=== PATIENT | male | born 1950 | race Caucasian/White ===

== ENCOUNTER 2017-12-22 13:48 | Inpatient (IN) | payer MEDICARE ==
[2017-12-22] MEDS ORDERED: ASPIRIN 81 MG PO STA (14:10)
[2017-12-22] MEDS ORDERED: NITROGLYCERIN OINT 1 INCH/GM PACKET TOPICAL STA (14:10)
--- NOTE | 2017-12-22 14:15 | ED ---
General Adult HPI - General Chief complaint: Chest Pain Stated complaint: Chest Pain Time Seen by Provider: 12/22/17 14:06 Source: patient, EMS, RN notes reviewed Mode of arrival: EMS Limitations: no limitations - History of Present Illness Initial comments: Patient is a pleasant 67-year-old male presenting to the emergency Department with complaints of chest discomfort. Onset was as he was finishing mowing the lawn. Discomfort is somewhat improved with nitroglycerin. Discomfort is currently 4/10. No associated dyspnea or nausea. Patient was sweaty however feels he may been sweaty just from cutting the grass. No history of similar symptoms previously. There was some radiation towards the left shoulder and right jaw. Patient has a difficult time describing the type of discomfort he experienced. - Related Data Home Medications Medication Instructions Recorded Confirmed Cinnamon Bark [Cinnamon] 500 mg PO DAILY 12/22/17 12/22/17 Fenugreek 1 tab PO DAILY 12/22/17 12/22/17 Garlic 1 tab PO DAILY 12/22/17 12/22/17 Glucosam/Oswaldo-Msm1/C/Alex/Bosw 1 tab PO DAILY 12/22/17 12/22/17 [Glucosamine-Chondroitin Tablet] Magnesium(Unknown Dose) 1 tab PO DAILY 12/22/17 12/22/17 Prostate Strong 1 tab PO DAILY 12/22/17 12/22/17 Allergies Allergy/AdvReac Type Severity Reaction Status Date / Time No Known Allergies Allergy Verified 12/22/17 14:24 Review of Systems ROS Statement: Those systems with pertinent positive or pertinent negative responses have been documented in the HPI. ROS Other: All systems not noted in ROS Statement are negative. Constitutional: Denies: fever Eyes: Denies: eye pain ENT: Denies: ear pain Respiratory: Denies: cough, dyspnea Cardiovascular: Reports: chest pain Endocrine: Denies: fatigue Gastrointestinal: Denies: nausea Genitourinary: Denies: dysuria Musculoskeletal: Denies: back pain Skin: Denies: rash Neurological: Denies: weakness Past Medical History Past Medical History: No Reported History History of Any Multi-Drug Resistant Organisms: None Reported Past Surgical History: Orthopedic Surgery Past Psychological History: No Psychological Hx Reported Smoking Status: Former smoker Past Alcohol Use History: Occasional Past Drug Use History: None Reported General Exam Limitations: no limitations General appearance: alert, in no apparent distress Head exam: Present: atraumatic Eye exam: Present: normal appearance, PERRL ENT exam: Present: normal oropharynx Neck exam: Present: normal inspection Respiratory exam: Present: normal lung sounds bilaterally. Absent: chest wall tenderness Cardiovascular Exam: Present: regular rate, normal rhythm, normal heart sounds Expanded Peripheral pulses: 2+: Radial (R), Radial (L), Posterior Tibialis (R), Posterior Tibialis (L) GI/Abdominal exam: Present: soft. Absent: tenderness Extremities exam: Present: normal inspection. Absent: pedal edema, calf tenderness Neurological exam: Present: alert Psychiatric exam: Present: normal affect, normal mood Skin exam: Present: normal color Course Vital Signs 12/22/17 12/22/17 13:49 15:25 Temperature 97.8 F Pulse Rate 84 76 Respiratory 18 16 Rate Blood Pressure 169/97 169/89 O2 Sat by Pulse 96 99 Oximetry EKG Findings - EKG Comments: EKG Findings:: Normal sinus rhythm 79. LA 148. QRS 102. QT 388. QTC 444. Normal axis. Normal QRS. No acute ST change. Medical Decision Making - Medical Decision Making Patient reevaluated and resting comfortably in bed. No significant discomfort at this time. Patient and family are updated on results and plan. Concern exists with elevated troponin. Patient will be started on heparin. Case was discussed with Dr. sutton, who will admit for Dr. Salinas. Cardiology will be placed on consult. Patient is advised to inform nursing if his symptoms worsen. - Lab Data Result diagrams: 12/22/17 13:54 12/22/17 13:54 Lab Results 12/22/17 12/22/17 12/22/17 Range/Units 13:54 13:54 13:54 WBC 9.1 (3.8-10.6) k/uL RBC 5.49 (4.30-5.90) m/uL Hgb 17.0 (13.0-17.5) gm/dL Hct 50.0 (39.0-53.0) % MCV 91.1 (80.0-100.0) fL MCH 31.0 (25.0-35.0) pg MCHC 34.0 (31.0-37.0) g/dL RDW 13.9 (11.5-15.5) % Plt Count 162 (150-450) k/uL Neutrophils % 81 % Lymphocytes % 13 % Monocytes % 5 % Eosinophils % 0 % Basophils % 1 % Neutrophils # 7.3 (1.3-7.7) k/uL Lymphocytes # 1.1 (1.0-4.8) k/uL Monocytes # 0.4 (0-1.0) k/uL Eosinophils # 0.0 (0-0.7) k/uL Basophils # 0.1 (0-0.2) k/uL PT (9.0-12.0) sec INR (<1.2) APTT (22.0-30.0) sec D-Dimer (<0.60) mg/L FEU Sodium 140 (137-145) mmol/L Potassium 5.1 (3.5-5.1) mmol/L Chloride 103 (98-107) mmol/L Carbon Dioxide 22 (22-30) mmol/L Anion Gap 15 mmol/L BUN 13 (9-20) mg/dL Creatinine 0.84 (0.66-1.25) mg/dL Est GFR (CKD-EPI)AfAm >90 (>60 ml/min/1.73 sqM) Est GFR (CKD-EPI)NonAf >90 (>60 ml/min/1.73 sqM) Glucose 274 H (74-99) mg/dL Calcium 9.6 (8.4-10.2) mg/dL Magnesium 1.9 (1.6-2.3) mg/dL Total Bilirubin 2.1 H (0.2-1.3) mg/dL AST 28 (17-59) U/L ALT 47 (21-72) U/L Alkaline Phosphatase 123 (38-126) U/L Total Creatine Kinase 161 (55-170) U/L CK-MB (CK-2) 2.5 H* (0.0-2.4) ng/mL CK-MB (CK-2) Rel Index 1.6 Troponin I 0.082 H* (0.000-0.034) ng/mL Total Protein 6.7 (6.3-8.2) g/dL Albumin 4.0 (3.5-5.0) g/dL 12/22/17 Range/Units 13:54 WBC (3.8-10.6) k/uL RBC (4.30-5.90) m/uL Hgb (13.0-17.5) gm/dL Hct (39.0-53.0) % MCV (80.0-100.0) fL MCH (25.0-35.0) pg MCHC (31.0-37.0) g/dL RDW (11.5-15.5) % Plt Count (150-450) k/uL Neutrophils % % Lymphocytes % % Monocytes % % Eosinophils % % Basophils % % Neutrophils # (1.3-7.7) k/uL Lymphocytes # (1.0-4.8) k/uL Monocytes # (0-1.0) k/uL Eosinophils # (0-0.7) k/uL Basophils # (0-0.2) k/uL PT 10.7 (9.0-12.0) sec INR 1.1 (<1.2) APTT 22.9 (22.0-30.0) sec D-Dimer 0.31 (<0.60) mg/L FEU Sodium (137-145) mmol/L Potassium (3.5-5.1) mmol/L Chloride (98-107) mmol/L Carbon Dioxide (22-30) mmol/L Anion Gap mmol/L BUN (9-20) mg/dL Creatinine (0.66-1.25) mg/dL Est GFR (CKD-EPI)AfAm (>60 ml/min/1.73 sqM) Est GFR (CKD-EPI)NonAf (>60 ml/min/1.73 sqM) Glucose (74-99) mg/dL Calcium (8.4-10.2) mg/dL Magnesium (1.6-2.3) mg/dL Total Bilirubin (0.2-1.3) mg/dL AST (17-59) U/L ALT (21-72) U/L Alkaline Phosphatase (38-126) U/L Total Creatine Kinase (55-170) U/L CK-MB (CK-2) (0.0-2.4) ng/mL CK-MB (CK-2) Rel Index Troponin I (0.000-0.034) ng/mL Total Protein (6.3-8.2) g/dL Albumin (3.5-5.0) g/dL - Radiology Data Radiology results: image reviewed (Chest x-ray shows no acute process.) Critical Care Time Critical Care Time: Yes Total Critical Care Time: 33 Disposition Clinical Impression: Acute coronary syndrome Disposition: ADMITTED IP TO THIS [facility] Condition: Serious Is patient prescribed a controlled substance at d/c from ED?: No Referrals: Georgia Salinas MD [Primary Care Provider] - 1-2 days Decision Time: 15:34
[2017-12-22 14:28] LABS: Basophils # (A) 0.1 k/uL (0-0.2); Basophils % (A) 1 %; Eosinophils % (A) 0 %; Lymphocytes # (A) 1.1 k/uL (1.0-4.8); Lymphocytes % (A) 13 %; MCV 91.1 fL (80.0-100.0); Monocytes # (A) 0.4 k/uL (0-1.0); Monocytes % (A) 5 %; Neutrophils # (A) 7.3 k/uL (1.3-7.7); Neutrophils % (A) 81 %; Platelet Count 162 k/uL (150-450); RBC 5.49 m/uL (4.30-5.90); RDW 13.9 % (11.5-15.5); WBC 9.1 k/uL (3.8-10.6)
[2017-12-22 14:35] LABS: ALT 47 U/L (21-72); AST 28 U/L (17-59); Alkaline Phosphatase 123 U/L (38-126); Anion Gap 15 mmol/L; Blood Urea Nitrogen 13 mg/dL (9-20); Calcium 9.6 mg/dL (8.4-10.2); Carbon Dioxide 22 mmol/L (22-30); Chloride 103 mmol/L (98-107); Glucose 274 mg/dL (74-99); Magnesium 1.9 mg/dL (1.6-2.3); Potassium 5.1 mmol/L (3.5-5.1); Sodium 140 mmol/L (137-145); Total Bilirubin 2.1 mg/dL (0.2-1.3); Total Protein 6.7 g/dL (6.3-8.2)
[2017-12-22 14:40] LABS: D-Dimer 0.31 mg/L FEU (<0.60); INR 1.1 (<1.2)
[2017-12-22 14:41] LABS: Partial Thromboplastin Time 22.9 sec (22.0-30.0); Prothrombin Time 10.7 sec (9.0-12.0)
[2017-12-22 15:06] LABS: Creatine Kinase MB 2.5 ng/mL (0.0-2.4); Troponin I 0.082 ng/mL (0.000-0.034)
--- NOTE | 2017-12-22 15:25 | XR ---
EXAMINATION TYPE: XR chest 2V DATE OF EXAM: 12/22/2017 COMPARISON: Prior chest CT 01/10/2012 HISTORY: Chest pain TECHNIQUE: Frontal and lateral views of the chest are obtained. FINDINGS: There is no focal air space opacity, pleural effusion, or pneumothorax seen. The cardiac silhouette size is within normal limits. The osseous structures are intact. Postop changes are note d to the cervical spine. Patient is post median sternotomy. There are prominent lung volumes possibly indicative of COPD. IMPRESSION: No acute cardiopulmonary process.
[2017-12-22] MEDS ORDERED: HEPARIN SODIUM,PORCINE 5,000 UNIT/ML 1 ML VIAL IV PRN (15:34)
[2017-12-22] MEDS ORDERED: HEPARIN SODIUM,PORCINE 5,000 UNIT/ML 1 ML VIAL IV ONE (15:34)
[2017-12-22] MEDS ORDERED: NITROGLYCERIN SL TABS 0.4 MG TAB SUBLINGUAL PRN (15:34)
[2017-12-22] MEDS: HEPARIN SODIUM,PORCINE/D5W PMX 25,000 UNIT in DEXTROSE/WATER 1 500ML.BAG IV SCH (15:56)
[2017-12-22 17:13] LABS: Troponin I 0.277 ng/mL (0.000-0.034)
[2017-12-22] MEDS: METOPROLOL TARTRATE 25 MG TAB PO SCH ×2 (18:05→22:52)
[2017-12-22] MEDS: NITROGLYCERIN OINT 1 INCH/GM PACKET TOPICAL SCH ×2 (18:05→23:50)
[2017-12-22] MEDS ORDERED: ALPRAZolam 0.25 MG TAB PO PRN (19:54)
[2017-12-22] MEDS ORDERED: TEMAZEPAM 15 MG CAP PO PRN (19:54)
[2017-12-22] MEDS: Acetaminophen-Codeine 300-30mg TAB PO PRN (20:52)
--- NOTE | 2017-12-22 21:12 | HP ---
HISTORY AND PHYSICAL CHIEF COMPLAINT: Chest pain. 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 Salinas in the outpatient setting, apparently was working outside. The patient was in the yard and after mowing the grass, the patient came inside. The patient was feeling chest pressure in the anterior part of the chest which was 5 out of 10 in intensity. EMS was called and the patient had some sweating also, some pain. The pain was radiating to the left shoulder and right jaw area also. The EMS gave some nitro which relieved the pain, but caused some headache to the patient. The patient came to [facility] and was admitted for further evaluation. The EKG showed ST-T changes in the inferior leads and blood sugar was 274. Troponins 0.082 and 0.277. Patient admitted for further evaluation and treatment. There is no history of any fever, rigors. No history of headache, loss of consciousness, seizures at this time. PAST MEDICAL HISTORY: History of CVA, TIA, history of third-degree piña, cardiac catheterization, DJD. MEDICATIONS: Prior to admission: 1.Magnesium. 2. Glucosamine. 3. Garlic. 4. Fenugreek. 5. Cinnamon bark. ALLERGIES: None. FAMILY HISTORY: History of tumor in the family. No history of heart disease or strokes in family. SOCIAL HISTORY: Previous history of smoking. No history of current smoking. No alcohol intake. REVIEW OF SYSTEMS: ENT: No diminished vision. No diminished hearing. Cardiovascular as mentioned earlier. Respiratory: As mentioned earlier. GI: No nausea and no vomiting or diarrhea. : No dysuria or hematuria. Nervous system: No numbness, weakness. Allergy/Immunology: No asthma or hayfever. MUSCULOSKELETAL: As mentioned earlier. HEMATOLOGY/ONCOLOGY: No history of anemia. Endocrine: No history of diabetes or hypothyroidism. Constitutional: As mentioned earlier. Dermatology: Negative. RHEUMATOLOGY: Negative. PSYCHIATRY: As mentioned earlier. PHYSICAL EXAM: GENERAL: Patient is alert, oriented x3. VITAL SIGNS: Pulse is 80, blood pressure 141/79, respiration 18, temperature 98 degrees, pulse ox 98% on room air. HEENT: Conjunctivae normal. NECK: No jugular venous distention. CARDIOVASCULAR: S1, S2 muffled. No S3, no S4. RESPIRATORY: Breath sounds diminished in the bases. No rhonchi. No crackles. ABDOMEN: Soft, nontender. No mass palpable. LEGS: No edema and no swelling. NERVOUS SYSTEM: Higher functions as mentioned earlier. Moves all four limbs. No focal deficits. LYMPHATICS: No lymph nodes palpable in the neck, axillae or groin. SKIN: No rashes, ulcers, or bleeding. JOINTS: No active deforming arthropathy. LABS: WBC 9.9. Hemoglobin 7. PTT 65.7. Glucose 274. Total bilirubin is 2.1. Creatine kinase 219 and CK-MB is 2.5 and 8 and troponin 0.08 and 0.277. EKG noted. Chest x-ray reviewed shows no acute cardiopulmonary process. ASSESSMENT: 1. Chest pain possible acute non ST segment elevation myocardial infarction. 2. Troponin 0.277. 3. Possibly new onset diabetes mellitus type 2. 4. Obesity with body mass index 38. 5. History of cerebrovascular accident/transient ischemic attack. 6. History of third-degree piña. 7. History of renal nephrolithiasis. 8. Hypertension. 9. History of degenerative joint disease. 10.History neck fusion. 11.History of cornea transplantation. 12.Remote history of nicotine dependence. RECOMMENDATIONS AND DISCUSSION: This 67-year-old gentleman who presented with multiple complex medical issues, we will monitor the patient closely. Continue the current medications, continue symptomatic treatment. Continue with IV heparin. Continue aspirin. Beta blockers. Monitor closely. Cardiology consultation. Acute coronary syndrome protocol. Symptomatic treatment. I would also recommend Tylenol #3 for the headache, nitro paste at this time. Otherwise monitor Accu-Cheks a.c. and hemoglobin A1c. The overall prognosis guarded because of multiple complex medical issues. DVT prophylaxis. Further recommendations to follow. Proton pump inhibitors. A copy of dictation forwarded to Dr. Salinas who is the primary physician. MMODL / IJN: [id number] / MTDVani
[2017-12-22 22:25] LABS: Glucose,Whole Blood 253 mg/dL (75-99)
[2017-12-22] MEDS: INSULIN ASPART 100 UNIT/ML 1 ML 10 ML VIAL SQ SCH (22:51)
[2017-12-23 02:21] LABS: Magnesium 1.8 mg/dL (1.6-2.3); Potassium 3.7 mmol/L (3.5-5.1)
[2017-12-23] MEDS ORDERED: Potassium Replacement Protocol 1 EACH MISC MISCELLANE PRN ×2 (04:19→04:20)
[2017-12-23] MEDS ORDERED: POTASSIUM CHLORIDE ER 20 MEQ TAB.ER PO SCH ×2 (05:00→06:00)
[2017-12-23] MEDS ORDERED: MAGNESIUM SULFATE-D5W PMX 1 GM in DEXTROSE/WATER 1 100ML.BAG IVPB ONE (05:25)
[2017-12-23] MEDS: NITROGLYCERIN OINT 1 INCH/GM PACKET TOPICAL SCH (06:12)
[2017-12-23 06:26] LABS: Glucose,Whole Blood 218 mg/dL (75-99)
[2017-12-23 06:26] LABS: Basophils % (A) 1 %; Eosinophils # (A) 0.1 k/uL (0-0.7); Eosinophils % (A) 2 %; HCT 46.6 % (39.0-53.0); HGB 16.2 gm/dL (13.0-17.5); Lymphocytes # (A) 1.7 k/uL (1.0-4.8); Lymphocytes % (A) 32 %; MCH 31.6 pg (25.0-35.0); MCHC 34.9 g/dL (31.0-37.0); MCV 90.6 fL (80.0-100.0); Monocytes # (A) 0.3 k/uL (0-1.0); Monocytes % (A) 6 %; Neutrophils % (A) 57 %; Platelet Count 172 k/uL (150-450); RBC 5.14 m/uL (4.30-5.90); RDW 13.5 % (11.5-15.5); WBC 5.3 k/uL (3.8-10.6)
[2017-12-23] MEDS: INSULIN ASPART 100 UNIT/ML 1 ML 10 ML VIAL SQ SCH ×4 (06:30→21:01)
[2017-12-23] MEDS: PANTOPRAZOLE 40 MG TABLET PO SCH (06:31)
[2017-12-23 07:44] LABS: Creatine Kinase MB 29.5 ng/mL (0.0-2.4)
[2017-12-23 08:03] LABS: Anion Gap 11 mmol/L; Blood Urea Nitrogen 12 mg/dL (9-20); Calcium 8.3 mg/dL (8.4-10.2); Carbon Dioxide 23 mmol/L (22-30); Chloride 103 mmol/L (98-107); Cholesterol 165 mg/dL (<200); Glucose 229 mg/dL (74-99); HDL Cholesterol 44 mg/dL (40-60); LDL Cholesterol,Calculated 96 mg/dL (0-99); Potassium 4.2 mmol/L (3.5-5.1); Sodium 137 mmol/L (137-145); Triglycerides 123 mg/dL (<150)
[2017-12-23] MEDS: HEPARIN SODIUM,PORCINE/D5W PMX 25,000 UNIT in DEXTROSE/WATER 1 500ML.BAG IV SCH (08:18)
--- NOTE | 2017-12-23 08:55 | P.CRDCN ---
History of Present Illness Consult date: 12/23/17 Requesting physician: Archie E Sheet Consult reason: non-Q-wave KS Chief complaint: Chest pain History of present illness: This is a 67-year-old gentleman with no prior documented hypertension , nondiabetic, no hyperlipidemia, nonsmoker, history of TIA in the past, this was approximately 15 years ago, at that time he also underwent a cardiac catheterization which he states was normal. Patient has not followed with a physician regularly for 6 years or so. He has overall been in excellent health and is quite physically active. Yesterday the patient was doing some yard work , came into the house, was having symptoms of chest pressure and tightness across his chest, it did radiate at times up into his jaw and into his arm. He denies any associated shortness of breath, he was quite diaphoretic but states he was working out in the heat. Symptoms persisted and for this reason his called EMS and had him brought to the hospital for further evaluation. EKG on arrival here showed normal sinus rhythm with inferior ST-T wave changes, subsequent EKG showed normal sinus rhythm with mild inferior ST elevation. EKG this morning continues to show ST-T wave changes in the inferior leads. Throughout the night last night patient was noted to have runs of nonsustained ventricular tachycardia. CBC is normal. D-dimer negative. Sodium 137, potassium 3.7, chloride 103, CO2 23, BUN 12, creatinine 0.6. Blood glucose on arrival to 74. Magnesium level I.8. Initial troponin 0.082, 0.277 and this morning's troponin is 11.0. Blood pressure on arrival 168/90, heart rate in the 80s, temperature 97.8 ,96% on 2 L of oxygen. At the time of my examination this morning, patient is currently chest pain-free. He is on IV heparin, aspirin, metoprolol, Nitropaste, he was also given magnesium and potassium supplementation last evening. Past Medical History Past Medical History: CVA/TIA Additional Past Medical History / Comment(s): hx 3rd degree piña on abd as a child d/t a homemade mustard plaster that was applied, tia, past kidney stone, rt leg broken-casted History of Any Multi-Drug Resistant Organisms: None Reported Past Surgical History: Heart Catheterization, Orthopedic Surgery Additional Past Surgical History / Comment(s): neck fusion, lt cornea transplant , rt ing hernia, lt carpal tunnel, x3 rt knee scopes, lt knee x`1 to clean out debri Past Anesthesia/Blood Transfusion Reactions: Motion Sickness Smoking Status: Former smoker - Past Family History Mother History Unknown: Yes Father Additional Family Medical History / Comment(s): tumor Medications and Allergies Home Medications Medication Instructions Recorded Confirmed Type Cinnamon Bark [Cinnamon] 500 mg PO DAILY 12/22/17 12/22/17 History Fenugreek 1 tab PO DAILY 12/22/17 12/22/17 History Garlic 1 tab PO DAILY 12/22/17 12/22/17 History Glucosam/Oswaldo-Msm1/C/Alex/Bosw 1 tab PO DAILY 12/22/17 12/22/17 History [Glucosamine-Chondroitin Tablet] Magnesium(Unknown Dose) 1 tab PO DAILY 12/22/17 12/22/17 History Prostate Strong 1 tab PO DAILY 12/22/17 12/22/17 History Allergies Allergy/AdvReac Type Severity Reaction Status Date / Time No Known Allergies Allergy Verified 12/22/17 14:24 Physical Exam Vitals: Vital Signs Temp Pulse Pulse Resp BP BP Pulse Ox 12/23/17 08:20 97.3 F L 60 18 132/67 12/23/17 03:52 68 17 12/23/17 03:50 97.3 F L 68 17 140/80 12/23/17 00:00 97.5 F L 70 18 128/74 12/22/17 20:00 97.2 F L 73 18 155/85 12/22/17 18:55 98.0 F 80 18 141/79 93 L 12/22/17 15:59 80 16 168/93 96 12/22/17 15:25 76 16 169/89 99 12/22/17 13:49 97.8 F 84 18 169/97 96 Intake and Output 12/22/17 12/23/17 12/23/17 22:59 06:59 14:59 Intake Total 647.333 424.784 282.816 Balance 647.333 424.784 282.816 Intake: Intake, IV Titration 167.333 224.784 42.816 Amount Heparin Sodium,Porcine/ 167.333 224.784 42.816 D5w Pmx 25,000 unit In Dextrose/Water 1 500ml. bag @ 8.819 UNITS/KG/HR 20 mls/hr IV .Q24H [facility] Rx #:[id number] Oral 480 200 240 Other: Voiding Method Toilet Toilet Urinal Urinal # Voids 1 Weight 110.7 kg PHYSICAL EXAMINATION: GENERAL: HEENT: Head is atraumatic, normocephalic. Pupils equal, round. Sclera anicteric. Conjunctiva are clear. Mucous membranes of the mouth are moist. Neck is supple. There is no elevated jugular venous pressure.] bruit is heard. HEART EXAMINATION: Heart S1, S2 normal. No murmur or gallop heard. CHEST EXAMINATION: Lungs are clear to auscultation and precussion. No chest wall tenderness is noted on palpation or with deep breathing. ABDOMEN: Soft, nontender. Bowel sounds are heard. No organomegaly noted. EXTREMITIES: 2+ peripheral pulses with no evidence of peripheral edema and no calf tenderness noted. NEUROLOGIC patient is awake, alert and oriented -3. . Results 12/23/17 05:28 12/23/17 06:57 Cardiac Enzymes 12/22/17 12/22/17 12/22/17 Range/Units 13:54 13:54 16:06 AST 28 (17-59) U/L CK-MB (CK-2) 2.5 H* 8.0 H* (0.0-2.4) ng/mL Troponin I 0.082 H* 0.277 H* (0.000-0.034) ng/mL 12/23/17 Range/Units 06:57 AST (17-59) U/L CK-MB (CK-2) 29.5 H* (0.0-2.4) ng/mL Troponin I 11.000 H* (0.000-0.034) ng/mL Coagulation 12/22/17 12/22/17 12/22/17 Range/Units 13:54 16:06 21:35 PT 10.7 (9.0-12.0) sec APTT 22.9 65.7 H 30.6 H (22.0-30.0) sec 12/23/17 Range/Units 05:28 PT (9.0-12.0) sec APTT 48.7 H (22.0-30.0) sec Lipids 12/23/17 Range/Units 06:57 Triglycerides 123 (<150) mg/dL Cholesterol 165 (<200) mg/dL HDL Cholesterol 44 (40-60) mg/dL CBC 12/22/17 12/23/17 Range/Units 13:54 05:28 WBC 9.1 5.3 (3.8-10.6) k/uL RBC 5.49 5.14 (4.30-5.90) m/uL Hgb 17.0 16.2 (13.0-17.5) gm/dL Hct 50.0 46.6 (39.0-53.0) % Plt Count 162 172 (150-450) k/uL Comprehensive Metabolic Panel 12/22/17 12/23/17 12/23/17 Range/Units 13:54 01:54 06:57 Sodium 140 137 (137-145) mmol/L Potassium 5.1 3.7 4.2 (3.5-5.1) mmol/L Chloride 103 103 (98-107) mmol/L Carbon Dioxide 22 23 (22-30) mmol/L BUN 13 12 (9-20) mg/dL Creatinine 0.84 0.64 L (0.66-1.25) mg/dL Glucose 274 H 229 H (74-99) mg/dL Calcium 9.6 8.3 L (8.4-10.2) mg/dL AST 28 (17-59) U/L ALT 47 (21-72) U/L Alkaline Phosphatase 123 (38-126) U/L Total Protein 6.7 (6.3-8.2) g/dL Albumin 4.0 (3.5-5.0) g/dL Current Medications Generic Name Dose Route Start Last Admin Trade Name Freq PRN Reason Stop Dose Admin Acetaminophen/Codeine Phosphate 1 each 12/22/17 19:49 12/22/17 20:52 Tylenol #3 PO 1 each Q6HR PRN Administration Pain Alprazolam 0.25 mg 12/22/17 19:54 Xanax PO TID PRN Anxiety Aspirin 325 mg 12/23/17 09:00 Aspirin PO DAILY [facility] Heparin Sodium (Porcine) 0 unit 12/22/17 15:34 12/22/17 22:16 Heparin IV 4,000 unit Q6HR PRN Administration Low PTT Protocol Heparin Sodium/Dextrose 25,000 500 mls @ 20 mls/hr 05/25/18 15:45 12/23/17 08 :18 unit/ IV Solution IV 11.8 units/kg/hr .Q24H [facility] 26.76 mls/hr Protocol Administration 8.819 UNITS/KG/HR Insulin Aspart 0 unit 12/22/17 21:00 12/23/17 06:30 Novolog SQ Not Given ACHS [facility] Protocol Metoprolol Tartrate 25 mg 12/22/17 15:34 12/22/17 22:52 Lopressor PO Not Given BID [facility] Miscellaneous Information 1 each 12/23/17 04:19 Potassium Per Protocol MISCELLANE DAILY PRN Per Protocol Protocol Miscellaneous Information 1 each 12/23/17 04:20 Potassium Per Protocol MISCELLANE DAILY PRN Per Protocol Protocol Nitroglycerin 1 inch 12/22/17 18:00 12/23/17 06:12 Nitro-Bid Oint TOPICAL Not Given Q6HR [facility] Nitroglycerin 0.4 mg 12/22/17 15:34 Nitrostat SUBLINGUAL Q5M PRN Chest Pain Pantoprazole Sodium 40 mg 12/23/17 07:30 12/23/17 06:31 Protonix PO Not Given AC-BRKFST [facility] Sodium Chloride 10 ml 12/22/17 21:00 12/22/17 20:54 Saline Flush IV 10 ml BID [facility] Administration Temazepam 15 mg 12/22/17 19:54 Restoril PO HS PRN Insomnia Intake and Output 12/22/17 12/23/17 12/23/17 22:59 06:59 14:59 Intake Total 647.333 424.784 282.816 Balance 647.333 424.784 282.816 Intake: Intake, IV Titration 167.333 224.784 42.816 Amount Heparin Sodium,Porcine/ 167.333 224.784 42.816 D5w Pmx 25,000 unit In Dextrose/Water 1 500ml. bag @ 8.819 UNITS/KG/HR 20 mls/hr IV .Q24H [facility] Rx #:[id number] Oral 480 200 240 Other: Voiding Method Toilet Toilet Urinal Urinal # Voids 1 Weight 110.7 kg 12/23/17 05:28 12/23/17 06:57 EKG Interpretations (text) EKG shows normal sinus rhythm with ST-T wave changes in the inferior leads. Assessment and Plan Plan: Assessment and plan #1 non-ST elevation myocardial infarction #2 elevated blood sugars on arrival, patient was not a known diabetic #3 hypertension, not on blood pressure medication at home. #4 nonsustained ventricular tachycardia Plan We will obtain a stat echocardiogram with Doppler study. Give the patient 80 mg of Lipitor now. Patient has been advised that he may need to undergo cardiac catheterization, the risks and the benefits were explained to the patient in detail, he is willing to proceed. Further recommendations will be based on these findings and patient's clinical course. DNP note has been reviewed, I agree with a documented findings and plan of care. Patient was seen and examined.
[2017-12-23] MEDS ORDERED: ASPIRIN 325 MG TAB PO SCH (09:00)
[2017-12-23] MEDS: METOPROLOL TARTRATE 25 MG TAB PO SCH ×2 (09:19→20:01)
--- NOTE | 2017-12-23 09:19 | ECHOF ---
Referral Reason:acs MEASUREMENTS -------- HEIGHT: 172.7 cm WEIGHT: 113.4 kg BP: 168/93 RVIDd: 3.3 cm (< 3.3) IVSd: 1.2 cm (0.6 - 1.1) LVIDd: 4.0 cm (3.9 - 5.3) LVPWd: 1.2 cm (0.6 - 1.1) IVSs: 1.7 cm LVIDs: 3.0 cm LVPWs: 1.7 cm LAESV Index (A-L): 29.76 ml/m Ao Diam: 3.8 cm (2.0 - 3.7) AV Cusp: 2.2 cm (1.5 - 2.6) LA Diam: 3.3 cm (2.7 - 3.8) EPSS: 0.6 cm MV E Darrel: 0.38 m/s MV DecT: 349 ms MV A Darrel: 0.65 m/s MV E/A Ratio: 0.59 RAP: 5.00 mmHg RVSP: 9.51 mmHg MV EF SLOPE: 31.19 mm/s (70 - 150) MV EXCURSION: 1.50 cm (> 18.000) FINDINGS -------- Sinus rhythm. This was a technically adequate study. The left ventricular size is normal. There is mild concentric left ventricular hypertrophy. Overa ll left ventricular systolic function is low-normal with, an EF between 50 - 55 %. The right ventricle is mildly enlarged. LA is midly dilated 29-33ml/m2. The right atrium was not well visualized. Aortic valve is trileaflet and is mildly thickened. There is no evidence of aortic regurgitation. There is no evidence of aortic stenosis. The mitral valve leaflets are mildly thickened. There is trace to mild mitral regurgitation. Trace tricuspid regurgitation present. Right ventricular systolic pressure is normal at < 35 mmHg. There is no evidence of pulmonary hypertension. Trace/mild (physiologic) pulmonic regurgitation. The aortic root size is normal. Normal inferior vena cava with normal inspiratory collapse consistent with estimated right atrial pre ssure of 5 mmHg. There is no pericardial effusion. CONCLUSIONS -------- 1. Sinus rhythm. 2. This was a technically adequate study. 3. The left ventricular size is normal. 4. There is mild concentric left ventricular hypertrophy. 5. Overall left ventricular systolic function is low-normal with, an EF between 50 - 55 %. 6. The right ventricle is mildly enlarged. 7. LA is midly dilated 29-33ml/m2. 8. The right atrium was not well visualized. 9. Aortic valve is trileaflet and is mildly thickened. 10. The mitral valve leaflets are mildly thickened. 11. There is trace to mild mitral regurgitation. 12. Trace tricuspid regurgitation present. 13. Right ventricular systolic pressure is normal at < 35 mmHg. 14. There is no evidence of pulmonary hypertension. 15. Trace/mild (physiologic) pulmonic regurgitation. 16. The aortic root size is normal. 17. There is no pericardial effusion. ROPER OPERATOR: Vinh Gruber RDCS
[2017-12-23] MEDS ORDERED: MIDAZOLAM 2 MG/2 ML VIAL ONE (11:19)
[2017-12-23] MEDS ORDERED: IV FLUID CONTINUATION 550 ML IV ONE (11:20)
[2017-12-23] MEDS ORDERED: LIDOCAINE 2% INJ 20 MG/ML (20 ML MDV) ONE (11:24)
[2017-12-23] MEDS ORDERED: diphenhydrAMINE 50 MG/ML 1 ML VIAL ONE (11:28)
[2017-12-23] MEDS ORDERED: MORPHINE SULFATE 4 MG/ML SYRINGE ONE (12:20)
[2017-12-23] MEDS ORDERED: MIDAZOLAM 2 MG/2 ML VIAL IVP ONE (12:22)
[2017-12-23] MEDS ORDERED: diphenhydrAMINE 50 MG/ML 1 ML VIAL IVP ONE (12:23)
[2017-12-23] MEDS: MORPHINE SULFATE 4 MG/ML SYRINGE IVP ONE ×2 (12:23→13:14)
[2017-12-23] MEDS: LIDOCAINE 2% INJ 20 MG/ML SQ ONE ×2 (12:27→13:14)
[2017-12-23] MEDS ORDERED: BIVALIRUDIN BOLUS 250 MG/50 ML IV ONE (12:46)
[2017-12-23] MEDS ORDERED: BIVALIRUDIN 250 MG in SODIUM CHLORIDE 0.9% 50 ML IV ONE (12:47)
[2017-12-23] MEDS ORDERED: NITROGLYCERIN 1000MCG/10ML SYRINGE INTRACORON ONE (13:06)
[2017-12-23] MEDS ORDERED: IOPAMIDOL-370 100ML BTL INJ ONE ×2 (13:08→13:15)
[2017-12-23] MEDS ORDERED: CLOPIDOGREL 75 MG TAB ONE (13:20)
[2017-12-23] MEDS ORDERED: CLOPIDOGREL 75 MG TAB PO ONE (13:23)
[2017-12-23] MEDS ORDERED: ZOLPIDEM 5 MG TAB PO PRN (13:33)
[2017-12-23] MEDS ORDERED: ATROPINE SULFATE 0.1 MG/ML 10ML SYRINGE IV PRN (13:33)
[2017-12-23] MEDS ORDERED: RX INFO: IV CONTRAST WAS GIVEN 1 EACH MISC MISCELLANE PRN (13:33)
[2017-12-23] MEDS ORDERED: NITROGLYCERIN SL TABS 0.4 MG TAB SUBLINGUAL PRN (13:33)
[2017-12-23] MEDS ORDERED: MAG HYDROX/AL HYDROX/SIMETH 30 ML CUP PO PRN (13:33)
[2017-12-23 13:36] LABS: Hemoglobin A1C 11.4 % (4.0-6.0)
--- NOTE | 2017-12-23 14:13 | CC ---
CARDIAC CATHETERIZATION REPORT DATE OF SERVICE: 12/23/2017. PROCEDURE: 1. Left heart catheterization and coronary angiography. 2. PTCA and stenting of proximal/mid LAD with a drug-eluting stent. PERFORMED BY: Dr. Andres Iniguez. SEDATION: Moderate conscious sedation time was 61 minutes. The patient was given morphine , Versed and Benadryl and his oxygen saturation, hemodynamics and EKG were monitored closely. CLINICAL INFORMATION: Mr. Ramez Rdz is a 67-year-old gentleman with a remote history of TIA, from which he recovered fully and this was more than 10-12 years ago. He does not take any specific prescription medications and he came into the hospital with chest pain syndrome suggestive of unstable angina and this occurred while he was cutting grass. He also developed some diaphoresis. His initial troponin was mildly elevated. Subsequently he was totally pain-free. EKG did not reveal any clear-cut changes. However, his subsequent troponin was elevated. Echocardiogram revealed minimal inferobasal hypokinesia. Ejection fraction was normal. He has had a cardiac cath apparently more than 10 years ago and was told it was normal. The details are unavailable. In view of his non-ST elevation KS, he was advised coronary angiography. I saw the patient this morning, explained to him the rationale, risks, benefits, options and also spoke to his by phone. The clinical picture was strongly suggestive of acute ischemic syndrome with a non-ST elevation KS. PROCEDURE NOTE: Under local anesthesia and strict aseptic precautions, a 6-Argentine introducer was placed in the right femoral artery. I used a standard Pedro catheters to perform coronary angiography and noted that there was a 99% stenosis involving the proximal/mid LAD immediately after the diagonal and small septal branch. He also had a subtotal occlusion of a PDA branch of circumflex which could also be a culprit lesion. RCA was a non dominant disease-free vessel. Circumflex was dominant. He was advised intervention that was performed expeditiously and I performed intervention of the LAD, which was a tighter lesion and recommended that before he leaves the hospital to have staged intervention of the PDA branch of circumflex. PTCA PROCEDURE DETAILS: I initially tried an XB LAD catheter then switched over to a C curve 4.00 catheter to cannulate the left coronary artery. I used a run-through wire to cross the lesion in the LAD. Predilatation was performed using a 15 mm long Euphora balloon. I then deployed a 23 mm long 3.0 caliber Xience stent at 11-12 atmospheres. Patient did not have chest pain but had significant anterior ST changes and ST segment elevation. He had excellent angiographic result without complication. He received 600 mg of Plavix. He also received Angiomax bolus and infusion as per protocol. The sheath was taken out and a Perclose device used to secure hemostasis. He was sent to the room in a stable condition. CARDIAC CATHETERIZATION FINDINGS: The left ventricle end-diastolic pressure was about 15 mmHg. I used a pigtail catheter to check pressures but did not perform LV gram. CORONARY ANGIOGRAPHY FINDINGS: RIGHT CORONARY ARTERY : Technically this is a nondominant vessel, has no significant disease and distally bifurcates into 2 small branches. There is an acute marginal which is quite tortuous and supplies right ventricle. There is no significant disease in the nondominant RCA. At the junction of the proximal and middle 1/3 there is minor 30% narrowing noted. LEFT MAIN CORONARY ARTERY: This is a short patent disease-free vessel that immediately bifurcates into LAD and circumflex. There is no significant disease in the short left main coronary artery. LEFT ANTERIOR DESCENDING CORONARY ARTERY: This is a good caliber LAD that gives off a large diagonal branch proximally. A small septal branch there is an eccentric 99% stenosis after which the caliber improves and vessel runs all the way to the apex. The distal 1/4 of the LAD also has some diffuse disease in it and it curves over the apex to supply the inferoapical portion of left ventricle. The LAD therefore at the junction of proximal and middle one third has a 99% stenosis calcified and quite severe. The first diagonal is free of significant disease. The distal LAD has significant disease. LEFT POSTERIOR CIRCUMFLEX CORONARY ARTERY: This is a very dominant vessel, gives off a small obtuse marginal proximally, then a moderate-sized obtuse marginal soon after that and then there is a large obtuse marginal that bifurcates into 2 branches. All the obtuse marginals have minor irregularities with of about 30%. The large obtuse marginal bifurcates into 2 branches. The inferior branch has about a 40% narrowing. Then circumflex then continues distally and it bifurcates into 2 branches, 1 is a smaller PLV branch and a larger PDA branch. The larger PDA has an eccentric 90% stenosis and there is some tortuosity after the stenotic segment and it appears to be a fair caliber vessel. This also could be a culprit lesion. The circumflex therefore is dominant, has several obtuse marginal, but the PDA branches which was of good caliber and distribution has a 99 to 95% stenosis with some haziness. LEFT VENTRICULOGRAM: This was not performed. FINAL IMPRESSION: This patient has normal filling pressures and 99% proximal/mid LAD lesion and distal diffuse LAD lesion. There is a 90% PDA branch of Dominant circumflex lesion. Non Dom RCA with no significant disease RECOMMENDATION: I recommended intervention of the LAD and proceeded to perform this in the same setting. PCI RESULTS: Excellent angiographic result was achieved with a 23 mm long drug-eluting Xience stent. Results were discussed with the patient and also I spoke to the by phone. MEDARDO / RICK: [id number] / MTDD
--- NOTE | 2017-12-23 14:19 | LTR ---
DATE OF SERVICE: 12/23/[address] Salinas: Thank you for the opportunity to participate in the care of Mr. Rdz. I am pleased to report to you that he had an excellent angiographic result. I dilated the LAD with a drug-eluting stent and I expect to do the PDA branch of circumflex prior to his discharge. The circumflex is somewhat of a distal lesion and technically more challenging and I will do this either on Monday or Monday. Thank you for your referral. Please call for questions. With kindest regards, Sincerely yours, [email or web address] / IJN: [id number] /
[2017-12-23 14:31] VITALS: BMI 37.0
[2017-12-23] MEDS: SODIUM CHLORIDE 0.9% 1,000 ML IV SCH (14:55)
[2017-12-23 16:46] LABS: Glucose,Whole Blood 168 mg/dL (75-99)
[2017-12-23] MEDS: ATORVASTATIN 80 MG TAB PO SCH (20:01)
--- NOTE | 2017-12-23 20:19 | PN ---
PROGRESS NOTE DATE OF SERVICE: 12/23/2017 This 67-year-old gentleman who was admitted with chest pain with possible acute non ST elevation myocardial infarction, also underwent a cardiac catheterization and LAD stenting. The patient also had a 90% PDA branch of dominant circumflex lesion also. Patient closely monitored. No chest pain. No palpitations. No fever. EXAM: GENERAL: Alert and oriented x3. VITAL SIGNS: The pulse is 64. Blood pressure 140/48. Respiration 18. Temperature 97.8, pulse ox 94% on 2 L. HEENT: Conjunctivae normal. NECK: No jugular venous distention. CARDIOVASCULAR: S1, S2 muffled. RESPIRATORY: Breath sounds diminished in the bases. No rhonchi and no crackles. ABDOMEN: Soft, nontender. No mass palpable. LEGS: No edema and no swelling. NERVOUS SYSTEM: Higher functions as mentioned earlier. Moves all four limbs. No focal deficits LYMPHATICS: No lymph nodes palpable in the neck, axillae or groin. SKIN: No ulcer, rash or bleeding. LABS: CBC within normal limits and creatinine 0.64 and troponin 11. ASSESSMENT: 1. Acute non ST-segment elevation myocardial infarction status post cardiac catheterization and LAD stenting with drug-eluting stent. 2. For stenting of the PDA branches, circumflex prior to discharge. 3. Troponin up to 11. 4. Possible new onset diabetes type 2. 5. Obesity with body mass index of 33.8. 6. History of cerebrovascular accident, transient ischemic attack. 7. History of third degree piña. 8. History of renal nephrolithiasis. 9. Hypertension. 10.History of degenerative joint disease. 11.History of neck fusion. 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 13.Remote history of nicotine dependence. RECOMMENDATIONS AND DISCUSSION: Recommend to continue current medications, management and symptomatic treatment. Otherwise closely monitor. Hemoglobin A1c is 11.4. I would recommend consistent carb diet and Accu-Cheks a.c. and q.h.s. Dietary consultation and I would also recommend p.o. medication including metformin initially. Blood sugar seems to be responding to the NovoLog scale at this time. We will continue to monitor. Further recommendations to follow. MMODL / IJN: [id number] /
[2017-12-23 21:00] LABS: Glucose,Whole Blood 188 mg/dL (75-99)
[2017-12-24] MEDS: SODIUM CHLORIDE 0.9% 1,000 ML IV SCH ×2 (03:24→17:28)
[2017-12-24 06:14] LABS: Glucose,Whole Blood 177 mg/dL (75-99)
[2017-12-24 06:35] LABS: Basophils % (A) 0 %; Eosinophils # (A) 0.1 k/uL (0-0.7); Eosinophils % (A) 1 %; HCT 47.2 % (39.0-53.0); HGB 16.1 gm/dL (13.0-17.5); Lymphocytes # (A) 1.1 k/uL (1.0-4.8); Lymphocytes % (A) 14 %; MCH 31.4 pg (25.0-35.0); MCHC 34.1 g/dL (31.0-37.0); MCV 92.2 fL (80.0-100.0); Mean Platelet Volume 7.1; Monocytes # (A) 0.5 k/uL (0-1.0); Monocytes % (A) 6 %; Neutrophils # (A) 6.1 k/uL (1.3-7.7); Neutrophils % (A) 77 %; Platelet Count 165 k/uL (150-450); RBC 5.12 m/uL (4.30-5.90); RDW 13.7 % (11.5-15.5); WBC 7.9 k/uL (3.8-10.6)
[2017-12-24] MEDS: PANTOPRAZOLE 40 MG TABLET PO SCH (06:41)
[2017-12-24] MEDS: INSULIN ASPART 100 UNIT/ML 1 ML 10 ML VIAL SQ SCH ×4 (06:41→21:52)
[2017-12-24 06:43] LABS: Anion Gap 10 mmol/L; Blood Urea Nitrogen 10 mg/dL (9-20); Calcium 8.5 mg/dL (8.4-10.2); Carbon Dioxide 23 mmol/L (22-30); Chloride 104 mmol/L (98-107); Glucose 181 mg/dL (74-99); Potassium 4.2 mmol/L (3.5-5.1); Sodium 137 mmol/L (137-145)
[2017-12-24] MEDS: LISINOPRIL 5 MG TAB PO SCH (09:22)
[2017-12-24] MEDS: CLOPIDOGREL 75 MG TAB PO SCH (09:22)
[2017-12-24] MEDS: ASPIRIN 81 MG PO SCH (09:22)
[2017-12-24] MEDS: METOPROLOL TARTRATE 25 MG TAB PO SCH ×2 (09:22→20:17)
[2017-12-24] MEDS ORDERED: ALPRAZolam 0.5 MG TAB PO PRN (10:48)
[2017-12-24] MEDS ORDERED: ATORVASTATIN 80 MG TAB PO STA (10:48)
[2017-12-24] MEDS ORDERED: ASPIRIN 325 MG TAB PO STA (10:48)
[2017-12-24] MEDS ORDERED: SODIUM CHLORIDE 0.9% 1,000 ML in EMPTY BAG 1 BAG IV ONE (10:48)
[2017-12-24] MEDS ORDERED: NITROGLYCERIN SL TABS 0.4 MG TAB SUBLINGUAL PRN ×2 (10:48→15:32)
[2017-12-24] MEDS ORDERED: ALPRAZolam 0.25 MG TAB PO PRN (10:48)
[2017-12-24 12:02] LABS: Glucose,Whole Blood 219 mg/dL (75-99)
[2017-12-24] MEDS: ATORVASTATIN 80 MG TAB PO SCH ×2 (12:02→20:16)
--- NOTE | 2017-12-24 13:50 | PN ---
PROGRESS NOTE Mrs. Rdz underwent stenting of a proximal/mid LAD yesterday from right femoral approach. His right groin is clean and dry. Vital signs are stable. Labs are good. EKG is good. He also has a significant lesion in the PDA branch of circumflex which I am recommending that we will perform today, probably from the right radial approach. I explained to the patient the rationale, risks, benefits, options. This may have actually been the culprit vessel. Procedure will be performed later on today. Patient understands risks, benefits and options and wishes to proceed. Vital signs are stable. S1-S2 heard normally. Lungs are clear. Abdomen and lower extremity exam unchanged. Right groin is clean and dry with small area of ecchymosis. Pulses good. MMODL / IJN: [id number] /
[2017-12-24] MEDS ORDERED: VERAPAMIL 2.5 MG/ML 2 ML AMP ONE (14:20)
[2017-12-24] MEDS ORDERED: MIDAZOLAM 2 MG/2 ML VIAL ONE (14:20)
[2017-12-24] MEDS ORDERED: diphenhydrAMINE 50 MG/ML 1 ML VIAL ONE (14:21)
[2017-12-24] MEDS ORDERED: LIDOCAINE 2% INJ 20 MG/ML (20 ML MDV) ONE (14:21)
[2017-12-24] MEDS ORDERED: MIDAZOLAM 2 MG/2 ML VIAL IVP ONE (14:37)
[2017-12-24] MEDS ORDERED: diphenhydrAMINE 50 MG/ML 1 ML VIAL IVP ONE (14:37)
[2017-12-24] MEDS ORDERED: IV FLUID CONTINUATION 700 ML IV ONE (14:38)
[2017-12-24] MEDS ORDERED: LIDOCAINE 2% INJ 20 MG/ML SQ ONE (14:39)
[2017-12-24] MEDS ORDERED: VERAPAMIL SYRINGE (5 MG/10 ML) INTRAARTER ONE (14:40)
[2017-12-24] MEDS ORDERED: NITROGLYCERIN 1000MCG/10ML SYRINGE INTRACORON ONE (14:48)
[2017-12-24] MEDS ORDERED: BIVALIRUDIN BOLUS 250 MG/50 ML IV ONE (14:50)
[2017-12-24] MEDS ORDERED: BIVALIRUDIN 250 MG in SODIUM CHLORIDE 0.9% 50 ML IV ONE (14:51)
[2017-12-24] MEDS ORDERED: IOPAMIDOL-370 100ML BTL INJ ONE ×2 (14:58→15:15)
[2017-12-24] MEDS ORDERED: IOPAMIDOL-370 50ML BTL INJ ONE (15:02)
[2017-12-24] MEDS ORDERED: niCARdipine 25 MG/10 ML VIAL ONE (15:11)
[2017-12-24] MEDS ORDERED: niCARdipine Syringe (1,000 mcg/10 mL) INTRACORON ONE (15:12)
[2017-12-24] MEDS ORDERED: CLOPIDOGREL 75 MG TAB PO ONE (15:17)
[2017-12-24] MEDS ORDERED: CLOPIDOGREL 75 MG TAB ONE (15:19)
[2017-12-24] MEDS ORDERED: MAG HYDROX/AL HYDROX/SIMETH 30 ML CUP PO PRN (15:32)
[2017-12-24] MEDS ORDERED: ZOLPIDEM 5 MG TAB PO PRN (15:32)
[2017-12-24] MEDS ORDERED: ATROPINE SULFATE 0.1 MG/ML 10ML SYRINGE IV PRN (15:32)
[2017-12-24] MEDS ORDERED: RX INFO: IV CONTRAST WAS GIVEN 1 EACH MISC MISCELLANE PRN (15:32)
[2017-12-24 16:38] LABS: Glucose,Whole Blood 161 mg/dL (75-99)
--- NOTE | 2017-12-24 17:44 | PN ---
PROGRESS NOTE DATE OF SERVICE: 12/24/2017. INTERVAL HISTORY: This 67-year-old gentleman who was admitted with acute myocardial infarction had LAD stenting. The patient is awaiting stenting of the circumflex today probably Dr. Phuong Iniguez is following the patient closely. No chest pain. No palpitations. No fever. EXAM: Alert and oriented times three. Pulse 67. Blood pressure 150/85, respiration 18, temperature 97.2, pulse ox 94% room air. HEENT: Conjunctivae normal. NECK is no jugular venous distention. CARDIOVASCULAR: S1, S2 muffled. RESPIRATORY: Breath sounds diminished in the bases. No rhonchi and no crackles. ABDOMEN is soft, nontender. No mass palpable. LEGS: No edema. No swelling. CENTRAL NERVOUS SYSTEM: No focal deficits. LABORATORY DATA: CBC within normal limits. Glucose 177. ASSESSMENT: 1. Acute non ST-segment elevation myocardial infarction status post cardiac catheterization LAD stenting with a drug-eluting stent. 2. For stenting of the PDA and circumflex prior to discharge. 3. Troponin of 11. 4. New onset diabetes mellitus type 2. 5. Obesity with body mass index of 33.8. 6. History of cerebrovascular accident, transient ischemic attack. 7. History of third-degree piña. 8. History of renal nephrolithiasis. 9. Hypertension. 10.History of degenerative joint disease. 11.History of neck fusion. 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 13.Remote history of nicotine dependence. RECOMMENDATIONS AND DISCUSSION: Recommend to continue current medications. Continue with monitoring and symptomatic treatment. Continue with antiplatelets. Continue beta blockers. Closely follow with Cardiology. Repeat cardiac cath today. Further recommendations to follow. MMODL / IJN: [id number] / MTDD
[2017-12-24] MEDS: Acetaminophen-Codeine 300-30mg TAB PO PRN (20:16)
[2017-12-24 21:07] LABS: Glucose,Whole Blood 186 mg/dL (75-99)
--- NOTE | 2017-12-24 21:35 | CC ---
CARDIAC CATHETERIZATION REPORT DATE OF SERVICE: 12/24/2017 PROCEDURE PERFORMED: PTCA and stenting off PDA branch of dominant circumflex coronary artery with a drug- eluting stent. PERFORMED BY: Dr. Andres Iniguez. ANESTHESIA: Moderate conscious sedation time was 39 minutes. CLINICAL INFORMATION: Mr. Rdz is a 67-year-old gentleman admitted to the hospital with a non-ST elevation MS and underwent stenting of a very tight proximal/mid LAD yesterday with a drug- eluting stent and was brought in for a staged intervention today. Risks, benefits, options and rationale were carefully explained to the patient and . PROCEDURE NOTE: Under local anesthesia and strict aseptic precautions, a 6-American introducer was placed in the right radial artery. I used a Q4 left side guide catheter and cannulated the left coronary artery. I took injections to check patency of LAD and LAD was widely patent without any compromise in flow. I then transferred my attention to the circumflex system. Using the same guide catheter with a run-through wire, I crossed the lesion in the PDA branch which was a very large and very distal lesion and a very large distribution vessel. Without predilatation I advanced a 12 mm long 2.75 caliber Xience stent and deployed this in the distal portion of the lesion. There was still another area of narrowing proximally just before the stented segment and this was addressed with another 8 mm 2.75 caliber Xience stent. With this I was able to deploy and telescope into the previously placed stent. Excellent angiographic result was achieved with a remarkably good angiographic appearance and flow. There were no complications. Results were discussed with the patient and also with his by phone. This appears to be a very large vessel with significant amount of distribution of the myocardium and it runs all the way to the apex and is the PDA branch that also gives off some septal branches. The patient received Angiomax bolus and infusion as per protocol. He also received 150 mg of Plavix additionally. Excellent angiographic result without complication was achieved and the sheath was taken out and TR band applied as per protocol and he was sent to the room in a stable condition. This patient had stenting of proximal/mid LAD. This vessel was widely patent. I performed a stenting of his PDA branch of circumflex with 2 drug-eluting stents. Excellent result was achieved. I expect the patient to be discharged in the next 24 hours. MMODL / IJN: [id number] /
--- NOTE | 2017-12-24 21:35 | LTR ---
DATE OF SERVICE: 12/24/[address] Salinas: Thank you for the opportunity to participate in the care of Mr. Ramez Rdz. As you may have received my earlier communication, I performed stenting of his LAD yesterday with a good result and I brought him back today to check the patency of LAD. The LAD was widely patent with good flow. I then performed stenting of the PDA branch of circumflex with a good result. I expect he will be discharged tomorrow if he remains stable. Thank you for your referral and please do call for questions. With kindest regards, Sincerely, MEDARDO / CLARIN: [id number] /
[2017-12-25 05:25] VITALS: RESP 18
[2017-12-25 06:02] LABS: Glucose,Whole Blood 134 mg/dL (75-99)
[2017-12-25] MEDS: INSULIN ASPART 100 UNIT/ML 1 ML 10 ML VIAL SQ SCH ×2 (06:07→13:29)
[2017-12-25] MEDS: PANTOPRAZOLE 40 MG TABLET PO SCH (06:36)
[2017-12-25 06:38] LABS: Basophils % (A) 1 %; Eosinophils # (A) 0.1 k/uL (0-0.7); Eosinophils % (A) 2 %; HCT 45.7 % (39.0-53.0); HGB 15.4 gm/dL (13.0-17.5); Lymphocytes # (A) 1.3 k/uL (1.0-4.8); Lymphocytes % (A) 24 %; MCH 31.4 pg (25.0-35.0); MCHC 33.7 g/dL (31.0-37.0); MCV 93.1 fL (80.0-100.0); Mean Platelet Volume 7.4; Monocytes # (A) 0.4 k/uL (0-1.0); Monocytes % (A) 7 %; Neutrophils # (A) 3.5 k/uL (1.3-7.7); Neutrophils % (A) 65 %; Platelet Count 140 k/uL (150-450); RBC 4.91 m/uL (4.30-5.90); RDW 14.5 % (11.5-15.5); WBC 5.4 k/uL (3.8-10.6)
[2017-12-25 06:51] LABS: Anion Gap 12 mmol/L; Blood Urea Nitrogen 11 mg/dL (9-20); Calcium 8.5 mg/dL (8.4-10.2); Carbon Dioxide 20 mmol/L (22-30); Chloride 107 mmol/L (98-107); Glucose 149 mg/dL (74-99); Potassium 4.2 mmol/L (3.5-5.1); Sodium 139 mmol/L (137-145)
[2017-12-25] MEDS: SODIUM CHLORIDE 0.9% 1,000 ML IV SCH (06:59)
[2017-12-25] MEDS: ASPIRIN 81 MG PO SCH (08:05)
[2017-12-25] MEDS: CLOPIDOGREL 75 MG TAB PO SCH (08:05)
[2017-12-25] MEDS: LISINOPRIL 5 MG TAB PO SCH (08:06)
[2017-12-25] MEDS: METOPROLOL TARTRATE 25 MG TAB PO SCH (08:06)
[2017-12-25 12:04] LABS: Glucose,Whole Blood 162 mg/dL (75-99)
[2017-12-25 12:49] VITALS: BP 146/83; PULSE 59; TEMP 97.7
--- NOTE | 2017-12-25 15:45 | PN ---
PROGRESS NOTE Mr. Rdz is a gentleman who came in with a non-ST elevation [place] and underwent stenting of LAD and PDA branch of circumflex. He is doing remarkably well today. His right radial site is clean and dry. Right groin is good. Vital signs stable S1-S2 heard normally. Lungs are clear. Abdomen and lower extremity exam is unchanged. I am recommending that this gentleman can be discharged today. I have given him written prescriptions and instructed him to be on dual antiplatelet therapy, lisinopril and beta caleb and I will see him in the office in one week. He will call the office and I will see him within 1 week. Advised not to do any strenuous activity other than going for a walk every day. MMODL / IJN: [id number] /
[2017-12-25] MEDS ORDERED: LISINOPRIL 10 MG TAB PO SCH (21:00)
--- NOTE | 2017-12-26 06:34 | DS ---
DISCHARGE SUMMARY FINAL DIAGNOSES: 1. Acute nuq-SM-ofjllzf elevation myocardial infarction, status post cardiac catheterization, left anterior descending artery stenting as well as circumflex with drug-eluting stent. 2. Troponin 11. 3. New onset diabetes mellitus type 2. 4. Obesity with body mass index of 33.8. 5. History of cerebrovascular accident, transient ischemic attack. 6. History of third-degree piña. 7. History of renal nephrolithiasis. 8. Hypertension. 9. History of degenerative joint disease. 10.History of neck fusion. 11.History of corneal transplantation. 12.Remote history of nicotine dependence. DISCHARGE DISPOSITION: The patient will be discharged in stable condition with guarded prognosis. Discharge cleared by Cardiology. Total time taken 31 minutes and patient is stable. HISTORY OF PRESENT ILLNESS: This 67-year-old gentleman with past medical history of multiple medical problems admitted with features of chest pain, acute non-ST segment elevation myocardial infarction. Patient had LAD stenting and as well as PDA branch of the circumflex was also done. The patient improved significantly. The patient is being followed by Dr. Salinas in the outpatient setting. On exam, vitals are stable. CARDIOVASCULAR: S1 and S2 muffled. ABDOMEN: Soft. NERVOUS SYSTEM: No focal deficits. The patient also had new onset diabetes mellitus type 2. I would recommend the patient to initiate metformin, Accu-Cheks a.c. and at bedtime and consistent carb diet. Follow closely with Dr. Salinas in the outpatient setting. DISCHARGE ADVICE: 1. Diet is consistent carb and cardiac. 2. Activity limited until followup. 3. Follow up with Dr. Salinas in 2 to 3 days. 4. Follow up with Dr. Phuong Iniguez as advised. Medications will be: 1. Aspirin 81 mg p.o. daily. 2. Lipitor 80 mg at bedtime. 3. Cinnamon 500 mg p.o. daily. 4. Plavix 75 mg p.o. daily. 5. Fenugreek 1 tablet p.o. daily. 6. Garlic 1 tab p.o. daily. 7. Glucosamine 1 tablet p.o. daily. 8. Zestril 10 mg at bedtime. 9. Magnesium 1 tab p.o. daily. 10.Metformin 500 mg p.o. b.i.d. 11.Lopressor 25 mg p.o. b.i.d. 12.Nitrostat 0.4 sublingual p.r.n. 13.Prostate strong 1 p.o. daily. MMODL / IJN: [id number] /
== END 2017-12-25 14:38 | disposition home or self-care (01) | DRG 247 ==
LOC: EC 13:48 → 6SEL 15:34
PROVIDERS: ADMIT Internal Medicine; ATTEND Internal Medicine
PROC: 4A023N7 Measurement of Cardiac Sampling and Pressure, Left Heart, Percutaneous Approach (ICD-10-PCS; 2017-12-23)
PROC: B211YZZ Fluoroscopy of Multiple Coronary Arteries using Other Contrast (ICD-10-PCS; 2017-12-23)
PROC: 027034Z Dilation of Coronary Artery, One Artery with Drug-eluting Intraluminal Device, Percutaneous Approach (ICD-10-PCS; principal; 2017-12-23 11:30)
PROC: 027035Z Dilation of Coronary Artery, One Artery with Two Drug-eluting Intraluminal Devices, Percutaneous Approach (ICD-10-PCS; 2017-12-24)
DX: I21.4 Non-ST elevation (NSTEMI) myocardial infarction (principal); I47.2 Ventricular tachycardia; E11.65 Type 2 diabetes mellitus with hyperglycemia; I10 Essential (primary) hypertension; M19.91 Primary osteoarthritis, unspecified site; E66.9 Obesity, unspecified; Z68.38 Body mass index [BMI] 38.0-38.9, adult; Z79.899 Other long term (current) drug therapy; Z86.73 Personal history of transient ischemic attack (TIA), and cerebral infarction without residual deficits; Z87.891 Personal history of nicotine dependence; Z87.828 Personal history of other (healed) physical injury and trauma; Z87.442 Personal history of urinary calculi; Z98.1 Arthrodesis status; Z94.7 Corneal transplant status; Z87.81 Personal history of (healed) traumatic fracture
CPT/HCPCS: 36415; 71046; 80048; 80053; 80061; 82550; 82553; 83036; 83735; 84132; 84484; 85025; 85379; 85610; 85730; 93005; 93306; 93458; 96374; 99291

== ENCOUNTER 2017-12-27 22:34 | Inpatient (IN) | payer MEDICARE ==
[2017-12-27 23:11] LABS: Basophils % (A) 0 %; Eosinophils # (A) 0.1 k/uL (0-0.7); Eosinophils % (A) 2 %; HCT 46.3 % (39.0-53.0); HGB 16.1 gm/dL (13.0-17.5); Lymphocytes % (A) 25 %; MCH 31.4 pg (25.0-35.0); MCHC 34.8 g/dL (31.0-37.0); MCV 90.1 fL (80.0-100.0); Mean Platelet Volume 7.8; Monocytes # (A) 0.6 k/uL (0-1.0); Monocytes % (A) 7 %; Neutrophils # (A) 4.9 k/uL (1.3-7.7); Neutrophils % (A) 63 %; Platelet Count 191 k/uL (150-450); RBC 5.13 m/uL (4.30-5.90); RDW 13.6 % (11.5-15.5); WBC 7.7 k/uL (3.8-10.6)
[2017-12-27 23:25] LABS: INR 1.1 (<1.2); Partial Thromboplastin Time 24.5 sec (22.0-30.0)
[2017-12-27 23:29] LABS: ALT 41 U/L (21-72); AST 26 U/L (17-59); Albumin 3.9 g/dL (3.5-5.0); Alkaline Phosphatase 111 U/L (38-126); Amylase 48 U/L (30-110); Anion Gap 14 mmol/L; Blood Urea Nitrogen 15 mg/dL (9-20); Calcium 9.2 mg/dL (8.4-10.2); Carbon Dioxide 23 mmol/L (22-30); Chloride 100 mmol/L (98-107); Glucose 160 mg/dL (74-99); Lipase 38 U/L (23-300); Magnesium 1.7 mg/dL (1.6-2.3); Potassium 4.2 mmol/L (3.5-5.1); Sodium 137 mmol/L (137-145); Total Bilirubin 2.3 mg/dL (0.2-1.3); Total Protein 6.6 g/dL (6.3-8.2)
--- NOTE | 2017-12-27 23:37 | XR ---
EXAMINATION TYPE: XR chest 2V DATE OF EXAM: 12/27/2017 COMPARISON: 12/22/2017 HISTORY: Chest pain TECHNIQUE: Frontal and lateral views of the chest are obtained. FINDINGS: Heart and mediastinum are normal. Lungs are clear. Diaphragm is normal. There are chest le ads. Bony thorax is intact. There is spurring in the thoracic spine. IMPRESSION: No active cardiopulmonary disease. Normal heart.
[2017-12-28 00:10] LABS: Creatine Kinase MB 1.4 ng/mL (0.0-2.4)
[2017-12-28 00:15] LABS: Troponin I 1.17 ng/mL (0.000-0.034)
--- NOTE | 2017-12-28 00:34 | ED ---
Chest Pain HPI - General Chief Complaint: Chest Pain Stated Complaint: Chest pain Time Seen by Provider: 12/27/17 22:50 Source: patient, RN notes reviewed Mode of arrival: wheelchair Limitations: no limitations - History of Present Illness Initial Comments: This is a 59-year-old male who states he had chest pain was left midsternal. 3- 11/07 severity he did take aspirin nitroglycerin at home with some minimal success. Note he did have 3 stents placed this past Monday and Monday today being Monday. He states the pain is somewhat different than his previous pain. Is no other complaints at this time. MD Complaint: chest pain - Related Data Home Medications Medication Instructions Recorded Confirmed Cinnamon Bark [Cinnamon] 500 mg PO DAILY 12/22/17 12/27/17 Fenugreek 1 tab PO DAILY 12/22/17 12/27/17 Garlic 1 tab PO DAILY 12/22/17 12/27/17 Glucosam/Oswaldo-Msm1/C/Alex/Bosw 1 tab PO DAILY 12/22/17 12/27/17 [Glucosamine-Chondroitin Tablet] Magnesium(Unknown Dose) 1 tab PO DAILY 12/22/17 12/27/17 Prostate Strong 1 tab PO DAILY 12/22/17 12/27/17 Previous Rx's Medication Instructions Recorded Aspirin 81 mg PO DAILY chew 12/25/17 Atorvastatin [Lipitor] 80 mg PO HS tab 12/25/17 Clopidogrel [Plavix] 75 mg PO DAILY tab 12/25/17 Lisinopril [Zestril] 10 mg PO HS #90 tab 12/25/17 Metoprolol Tartrate [Lopressor] 25 mg PO BID tab 12/25/17 Nitroglycerin Sl Tabs [Nitrostat] 0.4 mg SUBLINGUAL Q5M PRN #20 tab 12/25/17 metFORMIN HCL [Glucophage] 500 mg PO BID #60 tab 12/25/17 Allergies Allergy/AdvReac Type Severity Reaction Status Date / Time No Known Allergies Allergy Verified 12/27/17 23:08 Review of Systems ROS Statement: Those systems with pertinent positive or pertinent negative responses have been documented in the HPI. ROS Other: All systems not noted in ROS Statement are negative. EKG Findings - EKG Results: EKG: interpreted by TIMOTEO, sinus rhythm (Sinus rhythm bradycardia rate of 59 LA interval 146 QRS duration 90 QT since QTC of 412/[address]-T wave changes seen at this time) Past Medical History Past Medical History: CVA/TIA Additional Past Medical History / Comment(s): hx 3rd degree piña on abd as a child d/t a homemade mustard plaster that was applied, tia, past kidney stone, rt leg broken-casted History of Any Multi-Drug Resistant Organisms: None Reported Past Surgical History: Heart Catheterization, Heart Catheterization With Stent, Orthopedic Surgery Additional Past Surgical History / Comment(s): neck fusion, lt cornea transplant , rt ing hernia, lt carpal tunnel, x3 rt knee scopes, lt knee x`1 to clean out debri Past Anesthesia/Blood Transfusion Reactions: Motion Sickness Past Psychological History: No Psychological Hx Reported Smoking Status: Former smoker - Past Family History Mother History Unknown: Yes Father Additional Family Medical History / Comment(s): tumor General Exam - General Exam Comments Initial Comments: This is a well-developed well-nourished awake alert oriented 3 male Limitations: no limitations General appearance: alert, in no apparent distress Head exam: Present: atraumatic, normocephalic, normal inspection Eye exam: Present: normal appearance, PERRL, EOMI. Absent: scleral icterus, conjunctival injection, periorbital swelling ENT exam: Present: normal exam, mucous membranes moist Neck exam: Present: normal inspection. Absent: tenderness, meningismus, lymphadenopathy Respiratory exam: Present: normal lung sounds bilaterally. Absent: respiratory distress, wheezes, rales, rhonchi, stridor Cardiovascular Exam: Present: regular rate, normal rhythm, normal heart sounds. Absent: systolic murmur, diastolic murmur, rubs, gallop, clicks GI/Abdominal exam: Present: soft, normal bowel sounds. Absent: distended, tenderness, guarding, rebound, rigid Extremities exam: Present: normal inspection, full ROM, normal capillary refill. Absent: tenderness, pedal edema, joint swelling, calf tenderness Back exam: Present: normal inspection Neurological exam: Present: alert, oriented X3, CN II-XII intact Psychiatric exam: Present: normal affect, normal mood Skin exam: Present: warm, dry, intact, normal color. Absent: rash Course Vital Signs 12/27/17 12/27/17 22:36 23:39 Temperature 97.5 F L Pulse Rate 64 81 Respiratory 20 18 Rate Blood Pressure 153/80 160/101 O2 Sat by Pulse 99 95 Oximetry - Reevaluation(s) Reevaluation #1: 12/28/17 00:34 Reevaluation patient reveals the pain is improved the. Chest Pain MDM - MDM Imaging was reviewed no acute findings patient is getting improvement in his pain after long discussion with him he is agreed to stay in hospital tonight he will be evaluated by cardiology. Troponin is elevated though it is improved from the post procedural levels. Critical Care Time Critical Care Time: Yes Critical Care Time: 31 minutes of critical care time which includes initial presentation with history physical labs x-rays evaluation of old charting reevaluation patient several occasions discussion with the patient and family regarding the findings. Orders documentation the above Disposition Clinical Impression: Chest pain, Unstable angina pectoris Disposition: ADMITTED IP TO THIS HOSP Condition: Stable Referrals: Georgia Salinas MD [Primary Care Provider] - 1-2 days
[2017-12-28] MEDS ORDERED: NITROGLYCERIN SL TABS 0.4 MG TAB SUBLINGUAL PRN (00:35)
[2017-12-28] MEDS ORDERED: HEPARIN SODIUM,PORCINE 5,000 UNIT/ML 1 ML VIAL IV ONE (00:35)
[2017-12-28] MEDS ORDERED: HEPARIN SODIUM,PORCINE/D5W PMX 25,000 UNIT in DEXTROSE/WATER 1 500ML.BAG IV SCH (01:00)
[2017-12-28 05:51] VITALS: BMI 37.2
[2017-12-28 05:51] LABS: Glucose,Whole Blood 141 mg/dL (75-99)
[2017-12-28] MEDS ORDERED: NITROGLYCERIN OINT 1 INCH/GM PACKET TOPICAL SCH (06:00)
[2017-12-28] MEDS: metFORMIN 500 MG TAB PO SCH ×2 (06:40→17:22)
[2017-12-28] MEDS: INSULIN ASPART 100 UNIT/ML 1 ML 10 ML VIAL SQ SCH ×4 (06:40→23:55)
[2017-12-28 06:52] LABS: Creatine Kinase MB 1.2 ng/mL (0.0-2.4)
[2017-12-28 07:01] LABS: Troponin I 0.736 ng/mL (0.000-0.034)
[2017-12-28] MEDS: METOPROLOL TARTRATE 25 MG TAB PO SCH ×2 (08:08→23:55)
[2017-12-28] MEDS: CLOPIDOGREL 75 MG TAB PO SCH (08:09)
[2017-12-28] MEDS: MAGNESIUM OXIDE 400 MG TAB PO SCH (08:09)
--- NOTE | 2017-12-28 10:19 | P.CRDCN ---
History of Present Illness Consult date: 12/28/17 Requesting physician: Tere Butler Consult reason: chest pain Chief complaint: Chest pain History of present illness: This is a pleasant 67-year-old gentleman with history of hypertension , diabetes, hyperlipidemia, recent myocardial infarction for which patient underwent angioplasty and stenting of the LAD and PDA branch of the circumflex last week. Patient was discharged home in stable condition, return to the hospital on this occasion with symptoms of right upper chest pain which she states felt like an ache in his right upper chest area, lasted approximately an hour in duration. He does feel that this discomfort is different than when he presented with his OR last week. The patient states that he did carry out some garbage to the road which he feels may have exasperated the pain. He does have some discomfort in his shoulders this morning, improves when he raises his arms. Appears somewhat musculoskeletal. His EKG on presentation here showed a sinus bradycardia with nonspecific ST-T wave changes in the inferior lateral leads, subsequent EKG performed this morning shows normal sinus rhythm with T- wave inversion in the inferior leads. Chest x-ray did not reveal any active cardiopulmonary disease. The pressure on arrival 152/80 with a heart rate in the 60s, 99% on room air. Blood pressure this morning 110/60 with a heart rate in the 60s, 98% on 2 L of oxygen. CBC is normal, sodium 137, potassium 4.2, BUN 15, creatinine 0.7. Troponin 1.1 and 0.7. Troponin on the 26th of this month 11.0. At the time of my examination this morning, patient is currently chest pain-free, complaining of mild discomfort in his bilateral shoulders that improves with raising both of his arms. Past Medical History Past Medical History: CVA/TIA, Diabetes Mellitus Additional Past Medical History / Comment(s): hx 3rd degree piña on abd as a child d/t a homemade mustard plaster that was applied, tia, past kidney stone, rt leg broken-casted History of Any Multi-Drug Resistant Organisms: None Reported Past Surgical History: Heart Catheterization, Heart Catheterization With Stent, Orthopedic Surgery Additional Past Surgical History / Comment(s): neck fusion, lt cornea transplant , rt ing hernia, lt carpal tunnel, x3 rt knee scopes, lt knee x`1 to clean out debri Past Anesthesia/Blood Transfusion Reactions: Motion Sickness Date of Last Stent Placement:: November 2017 Past Psychological History: No Psychological Hx Reported Smoking Status: Former smoker Past Alcohol Use History: Occasional Additional Past Alcohol Use History / Comment(s): started smoking at age 12 and quit at age 23 was smoking 3.5 ppd and a pipe. quit alcohol in 1973 Past Drug Use History: None Reported - Past Family History Mother History Unknown: Yes Father Additional Family Medical History / Comment(s): tumor Medications and Allergies Home Medications Medication Instructions Recorded Confirmed Type Cinnamon Bark [Cinnamon] 500 mg PO DAILY 12/22/17 12/27/17 History Fenugreek 1 tab PO DAILY 12/22/17 12/27/17 History Garlic 1 tab PO DAILY 12/22/17 12/27/17 History Glucosam/Oswaldo-Msm1/C/Alex/Bosw 1 tab PO DAILY 12/22/17 12/27/17 History [Glucosamine-Chondroitin Tablet] Magnesium(Unknown Dose) 1 tab PO DAILY 12/22/17 12/27/17 History Prostate Strong 1 tab PO DAILY 12/22/17 12/27/17 History Aspirin 81 mg PO DAILY chew 12/25/17 12/27/17 Rx Atorvastatin [Lipitor] 80 mg PO HS tab 12/25/17 12/27/17 Rx Clopidogrel [Plavix] 75 mg PO DAILY tab 12/25/17 12/27/17 Rx Lisinopril [Zestril] 10 mg PO HS #90 tab 12/25/17 12/27/17 Rx Metoprolol Tartrate [Lopressor] 25 mg PO BID tab 12/25/17 12/27/17 Rx Nitroglycerin Sl Tabs [Nitrostat] 0.4 mg SUBLINGUAL Q5M PRN #20 tab 12/25/17 Rx metFORMIN HCL [Glucophage] 500 mg PO BID #60 tab 12/25/17 12/27/17 Rx Allergies Allergy/AdvReac Type Severity Reaction Status Date / Time No Known Allergies Allergy Verified 12/27/17 23:08 Physical Exam Vitals: Vital Signs Temp Pulse Pulse Resp BP BP Pulse Ox 12/28/17 08:36 97 12/28/17 04:00 97.1 F L 67 18 110/57 98 12/28/17 02:00 58 L 18 12/28/17 01:30 97.0 F L 58 L 18 164/80 99 12/27/17 23:39 81 18 160/101 95 12/27/17 22:36 97.5 F L 64 20 153/80 99 Intake and Output 12/27/17 12/28/17 12/28/17 22:59 06:59 14:59 Intake Total 0 0 Balance 0 0 Intake: Oral 0 0 Other: Voiding Method Toilet # Voids 2 Weight 110.223 kg 111 kg PHYSICAL EXAMINATION: GENERAL: This is a 67-year-old gentleman in no apparent distress at the time of my examination. HEENT: Head is atraumatic, normocephalic. Pupils equal, round. Sclera anicteric. Conjunctiva are clear. Mucous membranes of the mouth are moist. Neck is supple. There is no elevated jugular venous pressure.] bruit is heard. HEART EXAMINATION: Heart S1, S2 normal. No murmur or gallop heard. CHEST EXAMINATION: Lungs are clear to auscultation and precussion. No chest wall tenderness is noted on palpation or with deep breathing. ABDOMEN: Soft, nontender. Bowel sounds are heard. No organomegaly noted. EXTREMITIES: 2+ peripheral pulses with no evidence of peripheral edema and no calf tenderness noted. NEUROLOGIC patient is awake, alert and oriented -3. . Results 12/27/17 22:54 12/27/17 22:54 Cardiac Enzymes 12/27/17 12/27/17 12/28/17 Range/Units 22:54 22:54 05:20 AST 26 (17-59) U/L CK-MB (CK-2) 1.4 1.2 (0.0-2.4) ng/mL Troponin I 1.170 H* 0.736 H* (0.000-0.034) ng/mL Coagulation 12/27/17 12/28/17 Range/Units 22:54 08:45 PT 11.0 (9.0-12.0) sec APTT 24.5 37.1 H (22.0-30.0) sec CBC 12/27/17 Range/Units 22:54 WBC 7.7 (3.8-10.6) k/uL RBC 5.13 (4.30-5.90) m/uL Hgb 16.1 (13.0-17.5) gm/dL Hct 46.3 (39.0-53.0) % Plt Count 191 (150-450) k/uL Comprehensive Metabolic Panel 12/27/17 Range/Units 22:54 Sodium 137 (137-145) mmol/L Potassium 4.2 (3.5-5.1) mmol/L Chloride 100 (98-107) mmol/L Carbon Dioxide 23 (22-30) mmol/L BUN 15 (9-20) mg/dL Creatinine 0.73 (0.66-1.25) mg/dL Glucose 160 H (74-99) mg/dL Calcium 9.2 (8.4-10.2) mg/dL AST 26 (17-59) U/L ALT 41 (21-72) U/L Alkaline Phosphatase 111 (38-126) U/L Total Protein 6.6 (6.3-8.2) g/dL Albumin 3.9 (3.5-5.0) g/dL Current Medications Generic Name Dose Route Start Last Admin Trade Name Freq PRN Reason Stop Dose Admin Aspirin 325 mg 12/29/17 09:00 Aspirin PO DAILY [facility] Atorvastatin Calcium 80 mg 12/28/17 21:00 Lipitor PO HS MANUEL Clopidogrel Bisulfate 75 mg 12/28/17 09:00 12/28/17 08:09 Plavix PO 75 mg DAILY MANUEL Administration Heparin Sodium/Dextrose 25,000 500 mls @ 20.06 mls/hr 12/28/17 01:00 05:58 unit/ IV Solution IV Not Given .Q24H MANUEL Protocol 9.1 UNITS/KG/HR Insulin Aspart 0 unit 12/28/17 07:30 12/28/17 06:40 Novolog SQ 1 unit ACHS MANUEL Administration Protocol Lisinopril 10 mg 12/28/17 21:00 Zestril PO HS MANUEL Magnesium Oxide 400 mg 12/28/17 09:00 12/28/17 08:09 Mag-Ox PO 400 mg DAILY MANUEL Administration Metformin HCl 500 mg 12/28/17 07:30 12/28/17 06:40 Glucophage PO Not Given AC-BID MANUEL Metoprolol Tartrate 25 mg 12/28/17 09:00 12/28/17 08:08 Lopressor PO 25 mg BID MANUEL Administration Nitroglycerin 1 inch 12/28/17 06:00 12/28/17 06:40 Nitro-Bid Oint TOPICAL Not Given Q6HR MANUEL Nitroglycerin 0.4 mg 12/28/17 00:35 Nitrostat SUBLINGUAL Q5M PRN Chest Pain Intake and Output 12/27/17 12/28/17 12/28/17 22:59 06:59 14:59 Intake Total 0 0 Balance 0 0 Intake: Oral 0 0 Other: Voiding Method Toilet # Voids 2 Weight 110.223 kg 111 kg 12/27/17 22:54 12/27/17 22:54 EKG Interpretations (text) EKG shows normal sinus rhythm with nonspecific ST-T wave changes in the inferior lateral leads. Assessment and Plan Plan: Assessment and plan #1 right upper chest discomfort, appears to be somewhat musculoskeletal in nature. Troponins are 1.1 and 0.7. Down from recent admission, troponin 11 at that time. EKG shows normal sinus rhythm with inferior lateral ST-T wave changes #2 recent myocardial infarction one week ago at which time patient underwent angioplasty and stenting of the LAD and circumflex #3 hypertension #4 hyperlipidemia #5 diabetes Plan We will decrease the aspirin 81 mg daily, continue Lipitor 80, Plavix 75 mg daily, lisinopril 10 mg daily, metoprolol 25 mg one tablet by mouth twice a day. Patient's pain appears to be musculoskeletal in nature. Further recommendations to follow. DNP note has been reviewed, I agree with a documented findings and plan of care. Patient was seen and examined.
[2017-12-28 12:13] LABS: Glucose,Whole Blood 143 mg/dL (75-99)
[2017-12-28 12:17] LABS: Troponin I 0.373 ng/mL (0.000-0.034)
--- NOTE | 2017-12-28 13:12 | P.HPIM ---
History of Present Illness 67-year-old gentleman with history of hypertension, diabetes, hyperlipidemia, recent myocardial infarction for which patient underwent angioplasty and stenting of the LAD and PDA branch of the circumflex last week. Patient was discharged home in stable condition, return to the hospital on this occasion with symptoms of right upper chest pain which she states felt like an ache in his right upper chest area, lasted approximately an hour in duration. He does feel that this discomfort is different than when he presented with his [place] last week. The patient states that he did carry out some garbage to the road which he feels may have exasperated the pain. He does have some discomfort in his shoulders this morning, improves when he raises his arms. Appears somewhat musculoskeletal. His EKG on presentation here showed a sinus bradycardia with nonspecific ST-T wave changes in the inferior lateral leads, subsequent EKG performed this morning shows normal sinus rhythm with T- wave inversion in the inferior leads. Chest x-ray did not reveal any active cardiopulmonary disease. Patient denied and diaphoresis patient denied any pleuritic pain. Patient took 1 nitroglycerin which did not improve his pain. Patient troponin is minimally elevated which appears to be that trended down troponin from his previous microinfarction. Cardiology was consulted and evaluated the patient. Review of Systems REVIEW OF SYSTEMS: CONSTITUTIONAL: No fever, no malaise, no fatigue. HEENT: No recent visual problems or hearing problems. Denied any sore throat. CARDIOVASCULAR: No orthopnea, PND, no palpitations, no syncope. PULMONARY: No shortness of breath, no cough, no hemoptysis. GASTROINTESTINAL: No diarrhea, no nausea, no vomiting, no abdominal pain. Normoactive bowel sounds. NEUROLOGICAL: No headaches, no weakness, no numbness. HEMATOLOGICAL: Denies any bleeding or petechiae. GENITOURINARY: Denies any burning micturition, frequency, or urgency. MUSCULOSKELETAL/RHEUMATOLOGICAL: Denies any joint pain, swelling, or any muscle pain. ENDOCRINE: Denies any polyuria or polydipsia. The rest of the 14-point review of systems is negative. Past Medical History Past Medical History: CVA/TIA, Diabetes Mellitus Additional Past Medical History / Comment(s): hx 3rd degree piña on abd as a child d/t a homemade mustard plaster that was applied, tia, past kidney stone, rt leg broken-casted History of Any Multi-Drug Resistant Organisms: None Reported Past Surgical History: Heart Catheterization, Heart Catheterization With Stent, Orthopedic Surgery Additional Past Surgical History / Comment(s): neck fusion, lt cornea transplant , rt ing hernia, lt carpal tunnel, x3 rt knee scopes, lt knee x`1 to clean out debri Past Anesthesia/Blood Transfusion Reactions: Motion Sickness Date of Last Stent Placement:: November 2017 Past Psychological History: No Psychological Hx Reported Smoking Status: Former smoker Past Alcohol Use History: Occasional Additional Past Alcohol Use History / Comment(s): started smoking at age 12 and quit at age 23 was smoking 3.5 ppd and a pipe. quit alcohol in 1973 Past Drug Use History: None Reported - Past Family History Mother History Unknown: Yes Father Additional Family Medical History / Comment(s): tumor Medications and Allergies Home Medications Medication Instructions Recorded Confirmed Type Cinnamon Bark [Cinnamon] 500 mg PO DAILY 12/22/17 12/27/17 History Fenugreek 1 tab PO DAILY 12/22/17 12/27/17 History Garlic 1 tab PO DAILY 12/22/17 12/27/17 History Glucosam/Oswaldo-Msm1/C/Alex/Bosw 1 tab PO DAILY 12/22/17 12/27/17 History [Glucosamine-Chondroitin Tablet] Magnesium(Unknown Dose) 1 tab PO DAILY 12/22/17 12/27/17 History Prostate Strong 1 tab PO DAILY 12/22/17 12/27/17 History Aspirin 81 mg PO DAILY chew 12/25/17 12/27/17 Rx Atorvastatin [Lipitor] 80 mg PO HS tab 12/25/17 12/27/17 Rx Clopidogrel [Plavix] 75 mg PO DAILY tab 12/25/17 12/27/17 Rx Lisinopril [Zestril] 10 mg PO HS #90 tab 12/25/17 12/27/17 Rx Metoprolol Tartrate [Lopressor] 25 mg PO BID tab 12/25/17 12/27/17 Rx Nitroglycerin Sl Tabs [Nitrostat] 0.4 mg SUBLINGUAL Q5M PRN #20 tab 12/25/17 Rx metFORMIN HCL [Glucophage] 500 mg PO BID #60 tab 12/25/17 12/27/17 Rx Allergies Allergy/AdvReac Type Severity Reaction Status Date / Time No Known Allergies Allergy Verified 12/27/17 23:08 Physical Exam Vitals: Vital Signs Temp Pulse Pulse Resp BP BP Pulse Ox 12/28/17 11:50 97.2 F L 65 16 136/82 95 12/28/17 08:36 97 12/28/17 08:07 97.3 F L 76 16 141/76 96 12/28/17 04:00 97.1 F L 67 18 110/57 98 12/28/17 02:00 58 L 18 12/28/17 01:30 97.0 F L 58 L 18 164/80 99 12/27/17 23:39 81 18 160/101 95 12/27/17 22:36 97.5 F L 64 20 153/80 99 Intake and Output 12/27/17 12/28/17 12/28/17 22:59 06:59 14:59 Intake Total 0 0 Balance 0 0 Intake: Oral 0 0 Other: Voiding Method Toilet Toilet # Voids 2 Weight 110.223 kg 111 kg PHYSICAL EXAMINATION: GENERAL: The patient is alert and oriented x3, not in any acute distress. Well developed, well nourished. HEENT: Pupils are round and equally reacting to light. EOMI. No scleral icterus. No conjunctival pallor. Normocephalic, atraumatic. No pharyngeal erythema. No thyromegaly. CARDIOVASCULAR: S1 and S2 present. No murmurs, rubs, or gallops. PULMONARY: Chest is clear to auscultation, no wheezing or crackles. ABDOMEN: Soft, nontender, nondistended, normoactive bowel sounds. No palpable organomegaly. MUSCULOSKELETAL: No joint swelling or deformity. EXTREMITIES: No cyanosis, clubbing, or pedal edema. NEUROLOGICAL: Gross neurological examination did not reveal any focal deficits. SKIN: No rashes. Results CBC & Chem 7: 12/27/17 22:54 12/27/17 22:54 Labs: Abnormal Lab Results - Last 24 Hours (Table) 12/27/17 12/27/17 12/28/17 Range/Units 22:54 22:54 05:20 APTT (22.0-30.0) sec Glucose 160 H (74-99) mg/dL POC Glucose (mg/dL) (75-99) mg/dL Total Bilirubin 2.3 H (0.2-1.3) mg/dL Troponin I 1.170 H* 0.736 H* (0.000-0.034) ng/mL 12/28/17 12/28/17 12/28/17 Range/Units 05:49 08:45 11:20 APTT 37.1 H (22.0-30.0) sec Glucose (74-99) mg/dL POC Glucose (mg/dL) 141 H (75-99) mg/dL Total Bilirubin (0.2-1.3) mg/dL Troponin I 0.373 H* (0.000-0.034) ng/mL 12/28/17 Range/Units 12:11 APTT (22.0-30.0) sec Glucose (74-99) mg/dL POC Glucose (mg/dL) 143 H (75-99) mg/dL Total Bilirubin (0.2-1.3) mg/dL Troponin I (0.000-0.034) ng/mL Thrombosis Risk Factor Assmnt - Choose All That Apply Any of the Below Risk Factors Present?: No Other Risk Factors: Yes Each Risk Factor Represents 2 Points: Age 61-74 years Other congenital or acquired thrombophilia - If yes, enter type in comment: No Thrombosis Risk Factor Assessment Total Risk Factor Score: 2 Thrombosis Risk Factor Assessment Level: Low Risk Assessment and Plan Plan: -Chest pain: Patient appears to have musculoskeletal chest pain mostly constricting his recent cardiac catheterization and stenting patient was admitted for monitoring. Cardiology evaluated the patient and they're recommending monitoring, patient probably can be discharged tomorrow. Repeat troponins will be obtained -Coronary artery disease with recent myocardial infarction, was discharged couple days ago -Hypertension -Hyperlipidemia -Type 2 diabetes mellitus on metformin which will be continued as we are not anticipating any cardiac catheterization
[2017-12-28 16:59] LABS: Glucose,Whole Blood 170 mg/dL (75-99)
[2017-12-28 17:04] VITALS: RESP 18
[2017-12-28 20:17] LABS: Glucose,Whole Blood 167 mg/dL (75-99)
[2017-12-28] MEDS ORDERED: LISINOPRIL 10 MG TAB PO SCH (21:00)
[2017-12-28] MEDS ORDERED: ATORVASTATIN 80 MG TAB PO SCH (21:00)
[2017-12-29 06:10] LABS: Glucose,Whole Blood 131 mg/dL (75-99)
[2017-12-29] MEDS: metFORMIN 500 MG TAB PO SCH (07:19)
[2017-12-29 07:27] LABS: Anion Gap 12 mmol/L; Blood Urea Nitrogen 13 mg/dL (9-20); Carbon Dioxide 22 mmol/L (22-30); Chloride 104 mmol/L (98-107); Cholesterol 128 mg/dL (<200); Glucose 147 mg/dL (74-99); HDL Cholesterol 31 mg/dL (40-60); LDL Cholesterol,Calculated 78 mg/dL (0-99); Potassium 4.4 mmol/L (3.5-5.1); Sodium 138 mmol/L (137-145); Triglycerides 97 mg/dL (<150)
[2017-12-29] MEDS: INSULIN ASPART 100 UNIT/ML 1 ML 10 ML VIAL SQ SCH (07:40)
[2017-12-29] MEDS: MAGNESIUM OXIDE 400 MG TAB PO SCH (07:49)
[2017-12-29] MEDS: CLOPIDOGREL 75 MG TAB PO SCH (07:49)
[2017-12-29] MEDS: METOPROLOL TARTRATE 25 MG TAB PO SCH (07:49)
[2017-12-29] MEDS ORDERED: ASPIRIN 325 MG TAB PO SCH (09:00)
[2017-12-29 09:01] VITALS: BP 141/77; PULSE 60; TEMP 96.8
--- NOTE | 2017-12-29 15:12 | PN ---
PROGRESS NOTE Mr. Rdz is doing very well. He has no further chest pain since yesterday. His pain in the shoulder seems to be musculoskeletal. He has history of multivessel PCI. I am recommending that he can be discharged on current medications and I reviewed with him the importance of taking dual antiplatelet therapy without interruption. Vital signs are stable. S1-S2 heard normally. Lungs are clear. Abdomen and lower extremity exam is unchanged. Plan is to discharge him and I will see him in the office in one week. MMODL / IJN: [id number] /
--- NOTE | 2017-12-29 16:57 | P.DS ---
Providers Date of admission: 12/28/17 00:36 Expected date of discharge: 12/29/17 Attending physician: Jose Antonio Arriaza Consults: 12/28/17 00:36 Consult Physician Urgent Consulting Provider: Smith Iniguez Consult Reason/Comments: Chest pain Do you want consulting provider notified?: Yes Primary care physician: Georgia Salinas Hospital Course: Final Diagnoses: -Chest pain: Patient appears to have musculoskeletal chest pain, recent cardiac catheterization and stenting patient was admitted for monitoring. -Coronary artery disease with recent myocardial infarction -Hypertension -Hyperlipidemia -Type 2 diabetes, Hospital Course: 67-year-old gentleman with history of hypertension, diabetes, hyperlipidemia, recent myocardial infarction for which patient underwent angioplasty and stenting of the LAD and PDA branch of the circumflex last week. Patient was discharged home in stable condition, return to the hospital on this occasion with symptoms of right upper chest pain which she states felt like an ache in his right upper chest area, lasted approximately an hour in duration. He does feel that this discomfort is different than when he presented with his [place] last week. The patient states that he did carry out some garbage to the road which he feels may have exasperated the pain. He does have some discomfort in his shoulders this morning, improves when he raises his arms. Appears somewhat musculoskeletal. His EKG on presentation here showed a sinus bradycardia with nonspecific ST-T wave changes in the inferior lateral leads, subsequent EKG performed this morning shows normal sinus rhythm with T- wave inversion in the inferior leads. Chest x-ray did not reveal any active cardiopulmonary disease. Patient denied and diaphoresis patient denied any pleuritic pain. Patient took 1 nitroglycerin which did not improve his pain. Patient troponin is minimally elevated which appears to be that trended down troponin from his previous microinfarction. Evaluated by cardiology. Dual anticoagulation. Cleared for discharge by cardiology. Patient is being discharged home in a stable condition with guarded prognosis. Outpatient diabetes education classes recommended. PHYSICAL EXAMINATION: GENERAL: alert and oriented x3, not in any acute distress. CARDIOVASCULAR: S1 and S2 present. No murmurs, rubs, or gallops. PULMONARY: Chest is clear to auscultation, no wheezing or crackles. ABDOMEN: Soft, nontender, nondistended, normoactive bowel sounds. No palpable organomegaly NEUROLOGICAL: Gross neurological examination did not reveal any focal deficits. The impression and plan of care has been dictated as directed. : I performed a history and examination of this patient, discussed the same with the dictator. I agree with the dictator's note ,documented as a scribe. Any additional findings or plans will be noted. Time taken: 35 minutes Patient Condition at Discharge: Stable Plan - Discharge Summary Discharge Rx Participant: No New Discharge Prescriptions: Continue Glucosam/Oswaldo-Msm1/C/Alex/Bosw [Glucosamine-Chondroitin Tablet] 1 tab PO DAILY Magnesium(Unknown Dose) 1 tab PO DAILY Garlic 1 tab PO DAILY Cinnamon Bark [Cinnamon] 500 mg PO DAILY Prostate Strong 1 tab PO DAILY Fenugreek 1 tab PO DAILY Aspirin 81 mg PO DAILY chew Atorvastatin [Lipitor] 80 mg PO HS tab Clopidogrel [Plavix] 75 mg PO DAILY tab metFORMIN HCL [Glucophage] 500 mg PO BID #60 tab Metoprolol Tartrate [Lopressor] 25 mg PO BID tab Nitroglycerin Sl Tabs [Nitrostat] 0.4 mg SUBLINGUAL Q5M PRN #20 tab PRN Reason: Chest Pain Lisinopril [Zestril] 10 mg PO HS #90 tab Discharge Medication List Cinnamon Bark [Cinnamon] 500 mg PO DAILY 12/22/17 [History] Fenugreek 1 tab PO DAILY 12/22/17 [History] Garlic 1 tab PO DAILY 12/22/17 [History] Glucosam/Oswaldo-Msm1/C/Alex/Bosw [Glucosamine-Chondroitin Tablet] 1 tab PO DAILY 12/22/17 [History] Magnesium(Unknown Dose) 1 tab PO DAILY 12/22/17 [History] Prostate Strong 1 tab PO DAILY 12/22/17 [History] Aspirin 81 mg PO DAILY chew 12/25/17 [Rx] Atorvastatin [Lipitor] 80 mg PO HS tab 12/25/17 [Rx] Clopidogrel [Plavix] 75 mg PO DAILY tab 12/25/17 [Rx] Lisinopril [Zestril] 10 mg PO HS #90 tab 12/25/17 [Rx] Metoprolol Tartrate [Lopressor] 25 mg PO BID tab 12/25/17 [Rx] Nitroglycerin Sl Tabs [Nitrostat] 0.4 mg SUBLINGUAL Q5M PRN #20 tab 12/25/17 [Rx ] metFORMIN HCL [Glucophage] 500 mg PO BID #60 tab 12/25/17 [Rx] Follow up Appointment(s)/Referral(s): Smith Iniguez MD [STAFF PHYSICIAN] - 01/03/18 2:30 pm (Monday) Georgia Salinas MD [Primary Care Provider] - 01/03/18 9:45 am (Monday) Ambulatory/Diagnostic Orders: Complete Blood Count w/diff [LAB.AMB] Time Frame: 3 Days, Location: Determined By Patient Patient Instructions/Handouts: Chest Pain (DC), Meal Planning with Diabetes Exchanges (DC) Activity/Diet/Wound Care/Special Instructions: Glucometer and testing supplies ordered through [employer] - [phone] ( expect delivery to home week of 12/31/17) - sample glucometer and testing supplies provided DIet: consist. Carb Accu cheks ACHS,Maintain Log, take to F/U with PCP for further rec. Activity: limited Till F/U OP DM education classes [phone] Discharge Disposition: HOME SELF-CARE
== END 2017-12-29 11:04 | disposition home or self-care (01) | DRG 282 ==
LOC: EC 22:34 → 6SEL 12-28 00:36
PROVIDERS: ADMIT Internal Medicine; ATTEND Internal Medicine
DX: R07.89 Other chest pain (principal); I21.9 Acute myocardial infarction, unspecified; I10 Essential (primary) hypertension; Z87.891 Personal history of nicotine dependence; E11.9 Type 2 diabetes mellitus without complications; E78.5 Hyperlipidemia, unspecified; I25.10 Atherosclerotic heart disease of native coronary artery without angina pectoris; Z79.02 Long term (current) use of antithrombotics/antiplatelets; Z79.82 Long term (current) use of aspirin; Z79.84 Long term (current) use of oral hypoglycemic drugs; Z79.899 Other long term (current) drug therapy; Z86.73 Personal history of transient ischemic attack (TIA), and cerebral infarction without residual deficits; Z94.7 Corneal transplant status; Z98.1 Arthrodesis status; R00.1 Bradycardia, unspecified
CPT/HCPCS: 36415; 71046; 80048; 80053; 80061; 82150; 82550; 82553; 83690; 83735; 83880; 84484; 85025; 85610; 85730; 93005; 94760; 96374; 99291

== ENCOUNTER 2019-03-24 10:00 | Inpatient (IN) | payer MEDICARE ==
[2019-03-24] MEDS ORDERED: SODIUM CHLORIDE 0.9% 500 ML 500 ML IV STA (10:09)
[2019-03-24] MEDS ORDERED: NITROGLYCERIN OINT 1 INCH/GM PACKET TOPICAL STA (10:19)
[2019-03-24] MEDS ORDERED: ASPIRIN 81 MG PO STA (10:19)
--- NOTE | 2019-03-24 10:28 | ED ---
General Adult HPI - General Chief complaint: Chest Pain Stated complaint: chest pain Time Seen by Provider: 03/24/19 10:09 Source: patient, RN notes reviewed Mode of arrival: wheelchair Limitations: no limitations - History of Present Illness Initial comments: This is a 68-year-old male presents emergency department with past medical history significant for ME with stent placement. Patient also has diabetes hypertension high cholesterol. Patient comes in today because approximately one hour prior to arrival patient started having chest pain which is typical chest pain he had when he had his heart attack. Patient states it does radiate to his left shoulder. Patient denies any diaphoretic episodes. Patient states he was mildly short of breath. Patient denies any nausea. Patient states pain still continues. Patient denies any headache patient denies lightheadedness. Patient denies any numbness or weakness. Patient denies any palpitations. Patient denies abdominal pain patient denies nausea vomiting diarrhea. Patient denies any leg swelling or calf tenderness. - Related Data Home Medications Medication Instructions Recorded Confirmed Empagliflozin [Jardiance] 10 mg PO DAILY 03/24/19 03/24/19 Insulin Unknown See Protocol SQ AC-TID 03/24/19 03/24/19 Lisinopril [Zestril] 5 mg PO HS 03/24/19 03/24/19 Metoprolol Tartrate [Lopressor] 25 mg PO HS 03/24/19 03/24/19 Metoprolol Tartrate [Lopressor] 50 mg PO QAM 03/24/19 03/24/19 Previous Rx's Medication Instructions Recorded Aspirin 81 mg PO DAILY chew 12/25/17 Atorvastatin [Lipitor] 80 mg PO HS tab 12/25/17 Clopidogrel [Plavix] 75 mg PO DAILY tab 12/25/17 metFORMIN HCL [Glucophage] 500 mg PO BID #60 tab 12/25/17 Allergies Allergy/AdvReac Type Severity Reaction Status Date / Time No Known Allergies Allergy Verified 03/24/19 10:14 Review of Systems ROS Statement: Those systems with pertinent positive or pertinent negative responses have been documented in the HPI. ROS Other: All systems not noted in ROS Statement are negative. Past Medical History Past Medical History: CVA/TIA, Diabetes Mellitus Additional Past Medical History / Comment(s): hx 3rd degree piña on abd as a child d/t a homemade mustard plaster that was applied, tia, past kidney stone, rt leg broken-casted History of Any Multi-Drug Resistant Organisms: None Reported Past Surgical History: Heart Catheterization, Heart Catheterization With Stent, Orthopedic Surgery Additional Past Surgical History / Comment(s): neck fusion, lt cornea transplant, rt ing hernia, lt carpal tunnel, x3 rt knee scopes, lt knee x`1 to clean out debri Past Anesthesia/Blood Transfusion Reactions: Motion Sickness Date of Last Stent Placement:: November 2017 Past Psychological History: No Psychological Hx Reported Smoking Status: Former smoker - Past Family History Mother History Unknown: Yes Father Additional Family Medical History / Comment(s): tumor General Exam - General Exam Comments Initial Comments: GENERAL: Patient is well-developed and well-nourished. Patient is nontoxic and well- hydrated and is in no acute distress. ENT: Neck is soft and supple. No significant lymphadenopathy is noted. Oropharynx is clear. Moist mucous membranes. Neck has full range of motion without eliciting any pain. EYES: The sclera were anicteric and conjunctiva were pink and moist. Extraocular movements were intact and pupils were equal round and reactive to light. Eyelids were unremarkable. PULMONARY: Unlabored respirations. Good breath sounds bilaterally. No audible rales rhonchi or wheezing was noted. CARDIOVASCULAR: There is a regular rate and rhythm without any murmurs gallops or rubs. ABDOMEN: Soft and nontender with normal bowel sounds. No palpable organomegaly was noted. There is no palpable pulsatile mass. SKIN: Skin is clear with no lesions or rashes and otherwise unremarkable. NEUROLOGIC: Patient is alert and oriented x3. Cranial nerves II through XII are grossly intact. Motor and sensory are also intact. Normal speech, volume and content. Symmetrical smile. MUSCULOSKELETAL: Normal extremities with adequate strength and full range of motion. No lower extremity swelling or edema. No calf tenderness. LYMPHATICS: No significant lymphadenopathy is noted PSYCHIATRIC: Normal psychiatric evaluation. Limitations: no limitations Course Vital Signs 03/24/19 03/24/19 10:02 11:00 Temperature 98 F Pulse Rate 62 71 Respiratory 16 18 Rate Blood Pressure 167/89 130/89 O2 Sat by Pulse 98 98 Oximetry Medical Decision Making - Medical Decision Making Patient's EKG shows a normal sinus rhythm at 69 bpm MD interval is 154 QRS is 98 QT interval 408 QTC is 437. Patient's EKG shows no ST segment elevation or depression or T wave abnormalities are noted. Patient received aspirin and Nitropaste in the emergency department he stated that the symptoms relieved after that. Chest x-ray shows no acute abnormalities. I started the patient heparin because of his unstable angina picture. I spoke with Dr. Rivera and he agreed to admit the patient admitted the patient wrote admitting orders. - Lab Data Result diagrams: 03/24/19 10:30 03/24/19 10:30 Lab Results 03/24/19 03/24/19 03/24/19 Range/Units 10:30 10:30 10:30 WBC 4.8 (3.8-10.6) k/uL RBC 5.19 (4.30-5.90) m/uL Hgb 16.2 (13.0-17.5) gm/dL Hct 47.9 (39.0-53.0) % MCV 92.2 (80.0-100.0) fL MCH 31.3 (25.0-35.0) pg MCHC 33.9 (31.0-37.0) g/dL RDW 13.4 (11.5-15.5) % Plt Count 165 (150-450) k/uL Neutrophils % 64 % Lymphocytes % 24 % Monocytes % 7 % Eosinophils % 1 % Basophils % 1 % Neutrophils # 3.1 (1.3-7.7) k/uL Lymphocytes # 1.2 (1.0-4.8) k/uL Monocytes # 0.4 (0-1.0) k/uL Eosinophils # 0.1 (0-0.7) k/uL Basophils # 0.0 (0-0.2) k/uL PT (9.0-12.0) sec INR (<1.2) APTT (22.0-30.0) sec Sodium 137 (137-145) mmol/L Potassium 4.5 (3.5-5.1) mmol/L Chloride 103 (98-107) mmol/L Carbon Dioxide 26 (22-30) mmol/L Anion Gap 8 mmol/L BUN 11 (9-20) mg/dL Creatinine 0.79 (0.66-1.25) mg/dL Est GFR (CKD-EPI)AfAm >90 (>60 ml/min/1.73 sqM) Est GFR (CKD-EPI)NonAf >90 (>60 ml/min/1.73 sqM) Glucose 222 H (74-99) mg/dL Calcium 9.0 (8.4-10.2) mg/dL Magnesium 1.7 (1.6-2.3) mg/dL Total Bilirubin 2.2 H (0.2-1.3) mg/dL AST 24 (17-59) U/L ALT 42 (21-72) U/L Alkaline Phosphatase 101 (38-126) U/L Troponin I (0.000-0.034) ng/mL NT-Pro-B Natriuret Pep 230 pg/mL Total Protein 6.9 (6.3-8.2) g/dL Albumin 3.8 (3.5-5.0) g/dL 03/24/19 03/24/19 Range/Units 10:30 10:30 WBC (3.8-10.6) k/uL RBC (4.30-5.90) m/uL Hgb (13.0-17.5) gm/dL Hct (39.0-53.0) % MCV (80.0-100.0) fL MCH (25.0-35.0) pg MCHC (31.0-37.0) g/dL RDW (11.5-15.5) % Plt Count (150-450) k/uL Neutrophils % % Lymphocytes % % Monocytes % % Eosinophils % % Basophils % % Neutrophils # (1.3-7.7) k/uL Lymphocytes # (1.0-4.8) k/uL Monocytes # (0-1.0) k/uL Eosinophils # (0-0.7) k/uL Basophils # (0-0.2) k/uL PT 10.6 (9.0-12.0) sec INR 1.0 (<1.2) APTT 24.5 (22.0-30.0) sec Sodium (137-145) mmol/L Potassium (3.5-5.1) mmol/L Chloride (98-107) mmol/L Carbon Dioxide (22-30) mmol/L Anion Gap mmol/L BUN (9-20) mg/dL Creatinine (0.66-1.25) mg/dL Est GFR (CKD-EPI)AfAm (>60 ml/min/1.73 sqM) Est GFR (CKD-EPI)NonAf (>60 ml/min/1.73 sqM) Glucose (74-99) mg/dL Calcium (8.4-10.2) mg/dL Magnesium (1.6-2.3) mg/dL Total Bilirubin (0.2-1.3) mg/dL AST (17-59) U/L ALT (21-72) U/L Alkaline Phosphatase (38-126) U/L Troponin I <0.012 (0.000-0.034) ng/mL NT-Pro-B Natriuret Pep pg/mL Total Protein (6.3-8.2) g/dL Albumin (3.5-5.0) g/dL Critical Care Time Critical Care Time: Yes Total Critical Care Time: 35 Disposition Clinical Impression: Unstable angina Disposition: ADMITTED IP TO THIS HOSP Referrals: Georgia Salinas MD [Primary Care Provider] - 1-2 days Time of Disposition: 11:56
[2019-03-24 10:51] LABS: Basophils % (A) 1 %; Eosinophils # (A) 0.1 k/uL (0-0.7); Eosinophils % (A) 1 %; HCT 47.9 % (39.0-53.0); HGB 16.2 gm/dL (13.0-17.5); Lymphocytes # (A) 1.2 k/uL (1.0-4.8); Lymphocytes % (A) 24 %; MCH 31.3 pg (25.0-35.0); MCHC 33.9 g/dL (31.0-37.0); MCV 92.2 fL (80.0-100.0); Mean Platelet Volume 7.1; Monocytes # (A) 0.4 k/uL (0-1.0); Monocytes % (A) 7 %; Neutrophils # (A) 3.1 k/uL (1.3-7.7); Neutrophils % (A) 64 %; Platelet Count 165 k/uL (150-450); RBC 5.19 m/uL (4.30-5.90); RDW 13.4 % (11.5-15.5); WBC 4.8 k/uL (3.8-10.6)
[2019-03-24 11:03] LABS: ALT 42 U/L (21-72); AST 24 U/L (17-59); African American GFR (CKD) >90 (>60 ml/min/1.73 sqM); Albumin 3.8 g/dL (3.5-5.0); Alkaline Phosphatase 101 U/L (38-126); Anion Gap 8 mmol/L; Blood Urea Nitrogen 11 mg/dL (9-20); Carbon Dioxide 26 mmol/L (22-30); Chloride 103 mmol/L (98-107); Glucose 222 mg/dL (74-99); Magnesium 1.7 mg/dL (1.6-2.3); Potassium 4.5 mmol/L (3.5-5.1); Sodium 137 mmol/L (137-145); Total Bilirubin 2.2 mg/dL (0.2-1.3); Total Protein 6.9 g/dL (6.3-8.2)
[2019-03-24 11:06] LABS: Partial Thromboplastin Time 24.5 sec (22.0-30.0); Prothrombin Time 10.6 sec (9.0-12.0)
--- NOTE | 2019-03-24 11:07 | XR ---
EXAMINATION TYPE: XR chest 2V DATE OF EXAM: 03/24/2019 COMPARISON: Chest x-ray December 27, 2017. HISTORY: Chest pain. TECHNIQUE: Frontal and lateral views of the chest are obtained. FINDINGS: There is chronic parenchymal change without suspicious air space opacity, pleural effusion , or pneumothorax seen. The cardiac silhouette size is stable and within normal limits. Surgical agustina nges cervical spine is redemonstrated. IMPRESSION: Chronic changes without acute pulmonary process.
[2019-03-24] MEDS ORDERED: HEPARIN SODIUM,PORCINE 5,000 UNIT/ML 1 ML VIAL IV ONE (11:51)
[2019-03-24] MEDS ORDERED: NITROGLYCERIN SL TABS 0.4 MG TAB SUBLINGUAL PRN (11:56)
[2019-03-24] MEDS: HEPARIN SOD,PORK IN 0.45% NACL 25,000 UNIT in 0.45% NACL 1 250ML.BAG IV SCH (12:11)
[2019-03-24] MEDS ORDERED: ACETAMINOPHEN TAB 500 MG TAB PO STA (13:31)
[2019-03-24 16:32] LABS: Glucose,Whole Blood 180 mg/dL (75-99)
[2019-03-24] MEDS: NITROGLYCERIN OINT 1 INCH/GM PACKET TOPICAL SCH ×2 (17:05→18:06)
[2019-03-24] MEDS ORDERED: ACETAMINOPHEN TAB 325 MG TAB PO PRN (17:51)
[2019-03-24] MEDS: MAG HYDROX/AL HYDROX/SIMETH 30 ML CUP PO SCH ×2 (18:04→21:23)
[2019-03-24 20:31] LABS: Glucose,Whole Blood 185 mg/dL (75-99)
--- NOTE | 2019-03-24 23:21 | P.HPIM ---
History of Present Illness H&P Date: 03/24/19 Chief Complaint: Chest pain Patient is a 68-year-old male with a known history of hypertension, diabetes type 2, history of coronary disease and stent placement 3 came to ER with complaints of chest pain. Patient says that today morning patient developed left sided chest pain and radiated to the side of the chest. Denied any radiation to the left arm. Pain he is assisted with minimal shortness of breath. Denied any nausea vomiting or diaphoresis. Patient did have headache all day. Pain has been constant since then with improved severe 80 currently. Patient is still having dull left-sided chest pain. Patient's suggested him go to ER for further evaluation due to prior history of coronary artery disease. Denied any orthopnea or PND. Denied any recent illnesses. No leg swelling. No nausea vomiting diarrhea or abdominal pain. Chest x-ray showed chronic changes without any acute process EKG showed normal sinus rhythm. Troponin 2 negative Review of Systems Constitutional: Patient denies any fever or chills . No generalized weakness or weight loss. Abdomen: Patient denied nausea vomiting and diarrhea and abdominal pain. Cardiovascular: Patient does have left-sided chest pain. No short of breath no palpitations. Respiratory: patient denied any cough is from production. No shortness of breath Neurologic: Patient denied any numbness or tingling headache. Musculoskeletal: Patient denies any complaints of joint swelling or deformity. Skin: Negative Psychiatric: Negative Endocrine: No heat or cold intolerance. No recent weight gain. Genitourinary: No dysuria or hematuria. All other 14 point ROS negative except the above Past Medical History Past Medical History: CVA/TIA, Diabetes Mellitus Additional Past Medical History / Comment(s): hx 3rd degree piña on abd as a child d/t a homemade mustard plaster that was applied, tia, past kidney stone, rt leg broken-casted History of Any Multi-Drug Resistant Organisms: None Reported Past Surgical History: Heart Catheterization, Heart Catheterization With Stent, Orthopedic Surgery Additional Past Surgical History / Comment(s): neck fusion, lt cornea transplant, rt ing hernia, lt carpal tunnel, x3 rt knee scopes, lt knee x`1 to clean out debri, 3 total cardiac cath stents per pt. Past Anesthesia/Blood Transfusion Reactions: Motion Sickness Date of Last Stent Placement:: january 2018 Past Psychological History: No Psychological Hx Reported Smoking Status: Former smoker Past Alcohol Use History: Occasional Additional Past Alcohol Use History / Comment(s): started smoking at age 12 and quit at age 23 was smoking 3.5 ppd and a pipe. quit alcohol in 1973 Past Drug Use History: None Reported - Past Family History Mother History Unknown: Yes Father Additional Family Medical History / Comment(s): tumor Medications and Allergies Home Medications Medication Instructions Recorded Confirmed Type Aspirin 81 mg PO DAILY chew 12/25/17 03/24/19 Rx Atorvastatin [Lipitor] 80 mg PO HS tab 12/25/17 03/24/19 Rx Clopidogrel [Plavix] 75 mg PO DAILY tab 12/25/17 03/24/19 Rx metFORMIN HCL [Glucophage] 500 mg PO BID #60 tab 12/25/17 03/24/19 Rx Empagliflozin [Jardiance] 10 mg PO DAILY 03/24/19 03/24/19 History Insulin Unknown See Protocol SQ AC-TID 03/24/19 03/24/19 History Lisinopril [Zestril] 5 mg PO HS 03/24/19 03/24/19 History Metoprolol Tartrate [Lopressor] 25 mg PO HS 03/24/19 03/24/19 History Metoprolol Tartrate [Lopressor] 50 mg PO QAM 03/24/19 03/24/19 History Allergies Allergy/AdvReac Type Severity Reaction Status Date / Time No Known Allergies Allergy Verified 03/24/19 10:14 Physical Exam Vitals: Vital Signs Temp Pulse Pulse Resp BP BP Pulse Ox 03/24/19 19:52 97.6 F 67 18 169/87 96 03/24/19 17:08 18 03/24/19 16:18 97.4 F L 60 18 153/90 98 03/24/19 16:00 98.2 F 72 18 140/86 97 03/24/19 13:00 75 20 151/93 97 03/24/19 12:30 87 18 139/96 97 03/24/19 12:00 73 16 135/94 95 03/24/19 11:30 70 20 138/95 96 03/24/19 11:00 71 18 130/89 98 03/24/19 10:02 98 F 62 16 167/89 98 Intake and Output 03/24/19 03/24/19 03/25/19 14:59 22:59 06:59 Other: Voiding Method Toilet # Voids 1 Weight 101.605 kg PHYSICAL EXAMINATION: Patient is lying in the bed comfortably, no acute distress, awake alert and oriented.. HEENT: Normocephalic. Neck is supple. Pupils reactive. Nostrils clear. Oral cavity is moist. Ears reveal no drainage. Neck reveals no JVD, carotid bruits, or thyromegaly. CHEST EXAMINATION: Trachea is central. Symmetrical expansion. Lung singh clear to auscultation and percussion. CARDIAC: Normal S1, S2 with no gallops. No murmurs ABDOMEN: Soft. Bowel sounds normal. No organomegaly. No abdominal bruits. Extremities: reveal no edema. No clubbing or cyanosis Neurologically awake, alert, oriented x3 with well-coordinated movements. No focal deficits noted Skin: No rash or skin lesions. Psychiatric: Coperative. Nonsuicidal Musculoskeletal: No joint swelling or deformity. Normal range of motion. Results CBC & Chem 7: 03/24/19 10:30 03/24/19 10:30 Labs: Abnormal Lab Results - Last 24 Hours (Table) 03/24/19 03/24/19 03/24/19 Range/Units 10:30 16:31 17:31 APTT 52.6 H (22.0-30.0) sec Glucose 222 H (74-99) mg/dL POC Glucose (mg/dL) 180 H (75-99) mg/dL Total Bilirubin 2.2 H (0.2-1.3) mg/dL 03/24/19 Range/Units 20:17 APTT (22.0-30.0) sec Glucose (74-99) mg/dL POC Glucose (mg/dL) 185 H (75-99) mg/dL Total Bilirubin (0.2-1.3) mg/dL Thrombosis Risk Factor Assmnt - DVT/VTE Prophylaxis DVT/VTE Prophylaxis: Pharmacologic Prophylaxis ordered - Choose All That Apply Any of the Below Risk Factors Present?: Yes Each Factor Represents 1 point: Obesity (BMI >25) Other Risk Factors: Yes Each Risk Factor Represents 2 Points: Age 61-74 years Thrombosis Risk Factor Assessment Total Risk Factor Score: 3 Thrombosis Risk Factor Assessment Level: Moderate Risk Assessment and Plan Assessment: Atypical chest pain. Rule out ACS. Coronary artery disease with history of stent placement 3 Diabetes type 2 Hypertension Previous history of smoking Osteoarthritis History of nephrolithiasis Plan: Patient be continued on telemetry monitoring. Serial EKG and troponin 3. Patient was started on heparin drip. Continue with aspirin statins and beta blockers. Continue with home blood pressure medications and insulin sliding scale. Cardiology was consulted. Further recommendations based on the clinical course. Time with Patient: Greater than 30
[2019-03-24] MEDS: METOPROLOL TARTRATE 25 MG TAB PO SCH (23:52)
[2019-03-24] MEDS: ATORVASTATIN 80 MG TAB PO SCH (23:52)
[2019-03-24] MEDS: LISINOPRIL 5 MG TAB PO SCH (23:52)
[2019-03-25] MEDS: NITROGLYCERIN OINT 1 INCH/GM PACKET TOPICAL SCH ×4 (01:02→17:16)
[2019-03-25 06:53] LABS: Glucose,Whole Blood 181 mg/dL (75-99)
[2019-03-25 09:37] LABS: Cholesterol 121 mg/dL (<200); HDL Cholesterol 44 mg/dL (40-60); LDL Cholesterol,Calculated 51 mg/dL (0-99); Triglycerides 131 mg/dL (<150)
--- NOTE | 2019-03-25 10:42 | P.CRDCN ---
History of Present Illness History of present illness: This is a pleasant 68-year-old male past medical history significant for coronary artery disease s/p stent placement to the LAD and PDA brach of the circumflex in the setting of a NSTEMI, hypertension, dyslipidemia, diabetes mellitus and TIA in the past. He follows in the office with Dr. Iniguez. We have been asked to see him in consultation for chest pain. He states yesterday while sitting down he felt a heavy burning sensation in the mid-sternal region with radiation down the left arm. This discomfort occurred off and on most of the day with no specific aggravating factors. At one point he did take 2 SL nitro and the discomfort did subside. Associated with fluttering sensation in the chest. He suffered an NSTEMI 11/2017 and states this discomfort felt very similar in nature however not as intense. He is seen and examined sitting up in bed in no acute distress. EKG reveals sinus mechanism with LVH criteria. Chest x-ray is negative for an acute cardiopulmonary process. Laboratory data reviewed, cardiac enzymes negative 3, LDL 51, creatinine 0.79, sodium 137, potassium 4.5, magnesium 1.7, proBNP 230 and CBC is unremarkable. Current cardiac medications include aspirin 81 mg daily, atorvastatin 80 mg daily, Plavix 75 mg daily, lisinopril 5 mg daily, Lopressor 50 mg the morning and 25 mg at bedtime. Most recent echocardiogram 11/2017 reveals preserved LV systolic function with ejection fraction 50-55%. Most recent cardiac catheterization 11/2017 revealed RCA with no significant disease, at the junction of the proximal and middle one third there is a 30% narrowing noted, left main no significant disease, LAD at the proximal midportion there is a 99% stenosis, significant stenosis, the larger of the 2 PDA branches has a 90% stenosis some tortuosity after the stenotic segment. He underwent successful stent placement at that time to the LAD and PDA. Most recent stress test performed in the office January 2018 revealed if primarily fixed defect with no reversibility. At the time of my exam: CONSTITUTIONAL: Denies fever. Denies chills. EYES: Denies blurred vision. Denies vision changes. Denies eye pain. EARS, NOSE, MOUTH & THROAT: Denies headache. Denies sore throat. Denies ear pain. CARDIOVASCULAR: Denies chest pain. Denies shortness of breath. Denies orthopnea. Denies PND. Denies palpitations. RESPIRATORY: Denies cough. GASTROINTESTINAL: Denies abdominal pain. Denies diarrhea. Denies constipation. Denies nausea. Denies vomiting. MUSCULOSKELETAL: Denies myalgias. INTEGUMENTARY: Denies pruitis. Denies rash. NEUROLOGIC: Denies numbness. Denies tingling. Denies weakness. PSYCHIATRIC: Denies anxiety. Denies depression. ENDOCRINE: Denies fatigue. Denies weight change. Denies polydipsia. Denies polyurina. GENITOURINARY: Denies burning, hematuria or urgency with micturation. HEMATOLOGIC: Denies history of anemia. Denies bleeding. Blood pressure 138/78 heart rate 63 afebrile maintaining oxygen saturation on room air GENERAL: This is a 68-year-old male in no apparent distress at the time of my examination. HEENT: Head is atraumatic, normocephalic. Pupils are equal, round. Sclerae anicteric. Conjunctivae are clear. Mucous membranes of the mouth are moist. Neck is supple. There is no jugular venous distention. No carotid bruit is heard. LUNGS: Clear to auscultation no wheezes, rales or rhonchi. No chest wall tenderness is noted on palpation or with deep breathing. HEART: Regular rate and rhythm without murmurs, rubs or gallops. S1 and S2 heard. ABDOMEN: Soft, nontender. Bowel sounds are heard. No organomegaly noted. EXTREMITIES: No evidence of peripheral edema and no calf tenderness noted. VASCULAR: Radial and dorsalis pedis pulses palpated, no evidence of clubbing. NEUROLOGIC: Patient is awake, alert and oriented x3. ASSESSMENT Precordial chest pain suggestive of unstable angina History of coronary artery disease status post stent placement in the setting of a myocardial infarction Hypertension Dyslipidemia Diabetes mellitus TIA Obesity, BMI 34 PLAN Recommend proceeding with cardiac catheterization to assess for progression of coronary artery disease. I have discussed the risks, benefits and alternative therapies for the above-mentioned procedure and for both sedation/analgesia as well as necessary blood product administration, if indicated, as they pertain to this patient. The patient has indicated understanding and acceptance of the risks and procedures discussed. Questions have been answered appropriately and he is agreeable to move forward with the above stated procedure. Continue aspirin, atorvastatin, Lopressor, Plavix and lisinopril as previously ordered. Further recommendations to follow based upon clinical course. Thank you kindly for this consultation. Nurse Practitioner note has been reviewed, I agree with a documented findings and plan of care. Patient was seen and examined. Past Medical History Past Medical History: CVA/TIA, Diabetes Mellitus Additional Past Medical History / Comment(s): hx 3rd degree piña on abd as a child d/t a homemade mustard plaster that was applied, tia, past kidney stone, rt leg broken-casted History of Any Multi-Drug Resistant Organisms: None Reported Past Surgical History: Heart Catheterization, Heart Catheterization With Stent, Orthopedic Surgery Additional Past Surgical History / Comment(s): neck fusion, lt cornea transplant, rt ing hernia, lt carpal tunnel, x3 rt knee scopes, lt knee x`1 to clean out debri, 3 total cardiac cath stents per pt. Past Anesthesia/Blood Transfusion Reactions: Motion Sickness Date of Last Stent Placement:: january 2018 Past Psychological History: No Psychological Hx Reported Smoking Status: Former smoker Past Alcohol Use History: Occasional Additional Past Alcohol Use History / Comment(s): started smoking at age 12 and quit at age 23 was smoking 3.5 ppd and a pipe. quit alcohol in 1973 Past Drug Use History: None Reported - Past Family History Mother History Unknown: Yes Father Additional Family Medical History / Comment(s): tumor Medications and Allergies Home Medications Medication Instructions Recorded Confirmed Type Aspirin 81 mg PO DAILY chew 12/25/17 03/24/19 Rx Atorvastatin [Lipitor] 80 mg PO HS tab 12/25/17 03/24/19 Rx Clopidogrel [Plavix] 75 mg PO DAILY tab 12/25/17 03/24/19 Rx metFORMIN HCL [Glucophage] 500 mg PO BID #60 tab 12/25/17 03/24/19 Rx Empagliflozin [Jardiance] 10 mg PO DAILY 03/24/19 03/24/19 History Lisinopril [Zestril] 5 mg PO HS 03/24/19 03/24/19 History Metoprolol Tartrate [Lopressor] 25 mg PO HS 03/24/19 03/24/19 History Metoprolol Tartrate [Lopressor] 50 mg PO QAM 03/24/19 03/24/19 History Insulin Aspart (Niacinamide) See Protocol SQ AC-TID 03/25/19 03/25/19 History [Fiasp 100 Unit/ml Flextouch] Allergies Allergy/AdvReac Type Severity Reaction Status Date / Time No Known Allergies Allergy Verified 03/24/19 10:14 Physical Exam Vitals: Vital Signs Temp Pulse Pulse Resp BP BP BP 03/25/19 07:15 98.1 F 63 18 138/78 03/25/19 04:23 97.4 F L 64 18 161/87 03/24/19 23:40 97.6 F 71 18 158/83 03/24/19 19:52 97.6 F 67 18 169/87 03/24/19 17:08 18 03/24/19 16:18 97.4 F L 60 18 153/90 03/24/19 16:00 98.2 F 72 18 140/86 03/24/19 13:00 75 20 151/93 03/24/19 12:30 87 18 139/96 03/24/19 12:00 73 16 135/94 03/24/19 11:30 70 20 138/95 03/24/19 11:00 71 18 130/89 03/24/19 10:02 98 F 62 16 167/89 Pulse Ox 03/25/19 07:15 98 03/25/19 04:23 94 L 03/24/19 23:40 97 03/24/19 19:52 96 03/24/19 17:08 03/24/19 16:18 98 03/24/19 16:00 97 03/24/19 13:00 97 03/24/19 12:30 97 03/24/19 12:00 95 03/24/19 11:30 96 03/24/19 11:00 98 03/24/19 10:02 98 Intake and Output 03/24/19 03/25/19 03/25/19 22:59 06:59 14:59 Intake Total 0 Balance 0 Intake: Oral 0 Other: Voiding Method Toilet Toilet # Voids 1 1 Results 03/24/19 10:30 03/24/19 10:30 Cardiac Enzymes 03/24/19 03/24/19 03/24/19 Range/Units 10:30 10:30 17:31 AST 24 (17-59) U/L Troponin I <0.012 <0.012 (0.000-0.034) ng/mL 03/24/19 Range/Units 22:44 AST (17-59) U/L Troponin I <0.012 (0.000-0.034) ng/mL Coagulation 03/24/19 03/24/19 Range/Units 10:30 17:31 PT 10.6 (9.0-12.0) sec APTT 24.5 52.6 H (22.0-30.0) sec CBC 03/24/19 Range/Units 10:30 WBC 4.8 (3.8-10.6) k/uL RBC 5.19 (4.30-5.90) m/uL Hgb 16.2 (13.0-17.5) gm/dL Hct 47.9 (39.0-53.0) % Plt Count 165 (150-450) k/uL Comprehensive Metabolic Panel 03/24/19 Range/Units 10:30 Sodium 137 (137-145) mmol/L Potassium 4.5 (3.5-5.1) mmol/L Chloride 103 (98-107) mmol/L Carbon Dioxide 26 (22-30) mmol/L BUN 11 (9-20) mg/dL Creatinine 0.79 (0.66-1.25) mg/dL Glucose 222 H (74-99) mg/dL Calcium 9.0 (8.4-10.2) mg/dL AST 24 (17-59) U/L ALT 42 (21-72) U/L Alkaline Phosphatase 101 (38-126) U/L Total Protein 6.9 (6.3-8.2) g/dL Albumin 3.8 (3.5-5.0) g/dL Current Medications Generic Name Dose Route Start Last Admin Trade Name Freq PRN Reason Stop Dose Admin Acetaminophen 650 mg 03/24/19 17:51 Tylenol Tab PO Q6HR PRN Fever and/ or Pain Al Hydroxide/Mg Hydroxide 30 ml 03/24/19 18:00 03/24/19 21:23 Maalox PO 30 ml QID MANUEL Administration Aspirin 325 mg 03/25/19 09:00 Aspirin PO DAILY [facility] Atorvastatin Calcium 80 mg 03/24/19 23:30 03/24/19 23:52 Lipitor PO 80 mg HS MANUEL Administration Clopidogrel Bisulfate 75 mg 03/25/19 09:00 Plavix PO DAILY [facility] Heparin Sodium/Sodium Chloride 250 mls @ 10 mls/hr 03/24/19 12:00 03/24/19 12:11 25,000 unit/ Sodium Chloride IV 9.842 units/kg/hr .Q24H MANUEL 10 mls/hr Administration Protocol 9.842 UNITS/KG/HR Lisinopril 5 mg 03/24/19 23:30 03/24/19 23:52 Zestril PO 5 mg HS MANUEL Administration Metoprolol Tartrate 25 mg 03/24/19 23:30 03/24/19 23:52 Lopressor PO 25 mg HS MANUEL Administration Metoprolol Tartrate 50 mg 03/25/19 09:00 Lopressor PO QAM MANUEL Nitroglycerin 1 inch 03/24/19 14:00 03/25/19 06:11 Nitro-Bid Oint TOPICAL Not Given Q6HR [facility] Nitroglycerin 0.4 mg 03/24/19 11:56 Nitrostat SUBLINGUAL Q5M PRN Chest Pain Non-Formulary Medication 10 mg 03/25/19 09:00 Empagliflozin [Jardiance] PO DAILY MANUEL Intake and Output 03/24/19 03/25/19 03/25/19 22:59 06:59 14:59 Intake Total 0 Balance 0 Intake: Oral 0 Other: Voiding Method Toilet Toilet # Voids 1 1 03/24/19 10:30 03/24/19 10:30
[2019-03-25] MEDS: ASPIRIN 325 MG TAB PO SCH (11:06)
[2019-03-25] MEDS: CLOPIDOGREL 75 MG TAB PO SCH (11:06)
[2019-03-25] MEDS: METOPROLOL TARTRATE 50 MG TAB PO SCH (11:06)
[2019-03-25] MEDS: MAG HYDROX/AL HYDROX/SIMETH 30 ML CUP PO SCH ×4 (11:06→21:22)
[2019-03-25 11:39] LABS: Glucose,Whole Blood 170 mg/dL (75-99)
[2019-03-25] MEDS: NON-FORMULARY DRUG (Empagliflozin [Jardiance] 10 MG) PO SCH (12:51)
[2019-03-25] MEDS ORDERED: SODIUM CHLORIDE 0.9% 1,000 ML in EMPTY BAG 1 BAG IV ONE (13:59)
[2019-03-25] MEDS ORDERED: ALPRAZolam 0.25 MG TAB PO PRN (13:59)
[2019-03-25] MEDS ORDERED: ALPRAZolam 0.5 MG TAB PO PRN (13:59)
[2019-03-25] MEDS: HEPARIN SOD,PORK IN 0.45% NACL 25,000 UNIT in 0.45% NACL 1 250ML.BAG IV SCH (14:11)
[2019-03-25 16:50] LABS: Glucose,Whole Blood 232 mg/dL (75-99)
[2019-03-25] MEDS: INSULIN ASPART (NovoLOG) 100 UNIT/ML VIAL SQ SCH ×2 (17:15→21:22)
[2019-03-25 20:39] LABS: Glucose,Whole Blood 170 mg/dL (75-99)
[2019-03-25] MEDS: LISINOPRIL 5 MG TAB PO SCH (21:22)
[2019-03-25] MEDS: ATORVASTATIN 80 MG TAB PO SCH (21:22)
[2019-03-25] MEDS: METOPROLOL TARTRATE 25 MG TAB PO SCH (21:22)
--- NOTE | 2019-03-25 21:47 | P.PN ---
Subjective Progress Note Date: 03/25/19 Principal diagnosis: Chest pain Patient is a 68-year-old male with a known history of hypertension, diabetes type 2, history of coronary disease and stent placement 3 came to ER with complaints of chest pain. Patient says that today morning patient developed left sided chest pain and radiated to the side of the chest. Denied any radiation to the left arm. Pain he is assisted with minimal shortness of breath. Denied any nausea vomiting or diaphoresis. Patient did have headache all day. Pain has been constant since then with improved severe 80 currently. Patient is still having dull left-sided chest pain. Patient's suggested him go to ER for further evaluation due to prior history of coronary artery disease. Denied any orthopnea or PND. Denied any recent illnesses. No leg swelling. No nausea vomiting diarrhea or abdominal pain. Chest x-ray showed chronic changes without any acute process EKG showed normal sinus rhythm. Troponin 2 negative 03/25/2019 Patient denied any complaints of chest pain or pressure today. Serial EKG and troponin 3 negative. Cardiology is planning for catheterization tomorrow. Patient does have a history of coronary artery disease and stent placement 3. No nausea vomiting. No headache or dizziness or lightheadedness. Current medications reviewed. Objective - Vital Signs Vital signs: Vital Signs Temp 98 F 03/25/19 20:00 Pulse 63 03/25/19 20:00 Resp 18 03/25/19 20:00 BP 158/83 03/25/19 20:00 Pulse Ox 96 03/25/19 20:00 Intake & Output 03/25/19 03/25/19 03/26/19 06:59 18:59 06:59 Intake Total 0 1150 Balance 0 1150 Intake: Intake, IV Titration 250 Amount Heparin Sod,Pork in 0.45% 250 NaCl 25,000 unit In 0.45 % NaCl 1 250ml.bag @ 9. 842 UNITS/KG/HR 10 mls/hr IV .Q24H MANUEL Rx#: [id number] Oral 0 900 Other: Voiding Method Toilet Toilet # Voids 1 - Exam PHYSICAL EXAMINATION: Patient is lying in the bed comfortably, no acute distress, awake alert and oriented.. HEENT: Normocephalic. Neck is supple. Pupils reactive. Nostrils clear. Oral cavity is moist. Ears reveal no drainage. Neck reveals no JVD, carotid bruits, or thyromegaly. CHEST EXAMINATION: Trachea is central. Symmetrical expansion. Lung singh clear to auscultation and percussion. CARDIAC: Normal S1, S2 with no gallops. No murmurs ABDOMEN: Soft. Bowel sounds normal. No organomegaly. No abdominal bruits. Extremities: reveal no edema. No clubbing or cyanosis Neurologically awake, alert, oriented x3 with well-coordinated movements. No focal deficits noted Skin: No rash or skin lesions. Psychiatric: Coperative. Nonsuicidal Musculoskeletal: No joint swelling or deformity. Normal range of motion. - Labs CBC & Chem 7: 03/24/19 10:30 03/24/19 10:30 Labs: Abnormal Lab Results - Last 24 Hours (Table) 03/25/19 03/25/19 03/25/19 Range/Units 06:41 11:37 13:12 APTT 35.6 H (22.0-30.0) sec POC Glucose (mg/dL) 181 H 170 H (75-99) mg/dL 03/25/19 03/25/19 03/25/19 Range/Units 16:48 20:28 20:38 APTT 54.4 H (22.0-30.0) sec POC Glucose (mg/dL) 232 H 170 H (75-99) mg/dL Assessment and Plan Assessment: Atypical chest pain. Possible unstable angina. Ruled out ACS. Coronary artery disease with history of stent placement 3 Diabetes type 2 Hypertension Previous history of smoking Osteoarthritis History of nephrolithiasis Plan: Patient be continued on telemetry monitoring. Serial EKG and troponin 3. Patient was started on heparin drip. Continue with aspirin statins and beta blockers. Continue with home blood pressure medications and insulin sliding scale. Cardiology is planning for cardiac cath tomorrow.. Further recommendations based on the clinical course. Time with Patient: Greater than 30
[2019-03-26 06:53] LABS: Glucose,Whole Blood 181 mg/dL (75-99)
[2019-03-26] MEDS: NITROGLYCERIN OINT 1 INCH/GM PACKET TOPICAL SCH ×4 (08:26→17:18)
[2019-03-26] MEDS: ASPIRIN 325 MG TAB PO SCH (08:26)
[2019-03-26] MEDS: METOPROLOL TARTRATE 50 MG TAB PO SCH (08:26)
[2019-03-26] MEDS: CLOPIDOGREL 75 MG TAB PO SCH (08:26)
[2019-03-26] MEDS: NON-FORMULARY DRUG (Empagliflozin [Jardiance] 10 MG) PO SCH (08:28)
[2019-03-26] MEDS: MAG HYDROX/AL HYDROX/SIMETH 30 ML CUP PO SCH ×5 (08:28→21:29)
[2019-03-26] MEDS: INSULIN ASPART (NovoLOG) 100 UNIT/ML VIAL SQ SCH ×4 (08:35→21:29)
[2019-03-26 11:55] LABS: Glucose,Whole Blood 150 mg/dL (75-99)
[2019-03-26] MEDS: HEPARIN SOD,PORK IN 0.45% NACL 25,000 UNIT in 0.45% NACL 1 250ML.BAG IV SCH (13:03)
[2019-03-26] MEDS ORDERED: MIDAZOLAM (PF) 2 MG/2 ML VIAL IVP ONE (15:50)
[2019-03-26] MEDS ORDERED: LIDOCAINE 1% INJ 10MG/ML (20 ML MDV) SQ ONE (15:53)
[2019-03-26] MEDS ORDERED: VERAPAMIL SYRINGE (5 MG/10 ML) INTRAARTER ONE ×2 (15:55→16:06)
[2019-03-26] MEDS ORDERED: IV FLUID CONTINUATION 1,000 ML IV ONE (15:58)
[2019-03-26] MEDS ORDERED: IOPAMIDOL-370 100ML BTL INJ ONE (16:06)
[2019-03-26 17:03] LABS: Glucose,Whole Blood 136 mg/dL (75-99)
[2019-03-26] MEDS ORDERED: SODIUM CHLORIDE 0.9% 1,000 ML IV SCH (17:30)
--- NOTE | 2019-03-26 19:12 | CC ---
CARDIAC CATHETERIZATION REPORT DATE OF SERVICE: 03/26/2019. PROCEDURE: Left heart catheterization and coronary angiography. PERFORMED BY: Dr. Phuong Iniguez. SEDATION: Moderate conscious sedation time was 20 minutes. Patient was administered Versed. His oxygen saturation, hemodynamics and EKG were monitored closely. CLINICAL INFORMATION: Mr. Ramez Rdz is a gentleman with history of hypertension, diabetes, hyperlipidemia who also has significant CAD, underwent stenting of a 95% proximal LAD performed on December 23, 2017. On the next day on the , I performed stenting of PDA branch of circumflex. He has a superdominant circumflex vessel and also has a nondominant fair caliber RCA. He presented to the hospital with symptoms of chest pain suggestive of angina without elevation of enzymes. Given the fact, he has multivessel intervention in the past, he was advised cardiac cath after due discussion regarding the rationale, risks, benefits, and options. PROCEDURE NOTE: Under local anesthesia and strict aseptic precautions, a 6-[place] introducer was placed in the right radial artery. Using a JL4 and JR4 catheters, I performed selective coronary angiography and the same JR4 catheter was used to check LV pressures. LV gram was not performed. The catheter and sheath were taken out and TR band applied as per protocol and he was sent to the room in stable condition. Saturation in the fingers of the right hand was 97%. Results were discussed with the patient and family. He has no significant disease involving the stented areas. CORONARY ANGIOGRAPHY FINDINGS: The left ventricle end-diastolic pressure was 8 mmHg without any gradient across aortic valve. RIGHT CORONARY ARTERY: Technically a nondominant yet good caliber, good distribution vessel that supplies a fair amount of myocardium, has minor irregularities and distally bifurcates into 2 small branches and there is a large acute marginal branch prior to bifurcation. The entire RCA has minor irregularities. No significant disease and is a technically nondominant vessel. LEFT MAIN CORONARY ARTERY: Short, patent vessel which bifurcates into LAD and circumflex. Left main itself is free of significant disease. LEFT ANTERIOR DESCENDING CORONARY ARTERY: Good caliber vessel extends along the anterior wall. The LAD gives off what seems to be a good size diagonal branch proximally and then at the stented area is widely patent. Beyond that, the caliber of the vessel improves. It runs all the way to the apex. The distal one fourth of the LAD is diffusely diseased. The stented segment of the proximal/mid LAD is widely patent without any compromise in angiographic appearance or flow. The diagonal branch has a 30-40 percent lesion and comes off before the stented segment, has minor irregularities. No significant disease and is a good caliber and good distribution vessel. LEFT POSTERIOR CIRCUMFLEX CORONARY ARTERY: Technically a super dominant vessel, gives off a first obtuse marginal and then gives off a second obtuse marginal that bifurcates into 2 branches. The inferior branch of second obtuse marginal has about a 50% narrowing. Then the circumflex continues distally and gives off PDA and PLV branches. The PDA was stented before. Now appears to be widely patent in the stented segment. Remarkably good angiographic appearance and flow. The circumflex system is therefore superdominant. Second obtuse marginal has a branch which has a 50% narrowing. The PDA branch of circumflex is widely patent with remarkably good angiographic appearance and flow without any evident complication. LEFT VENTRICULOGRAM: This was not performed. FINAL IMPRESSION: This patient has a left dominant system. The previously stented PDA branch of circumflex and proximal/mid LAD are widely patent with good flow. Distal LAD has diffuse disease unchanged. The RCA is free of significant disease and filling pressures are normal without any gradient across the aortic valve. RECOMMENDATIONS: Findings were discussed with the patient and . He is advised to continue current medical therapy with risk factor modification. No intervention is necessary. He has no significant progression of disease and stented segments are patent. He will be discharged tomorrow sense it is late today following the cardiac cath. MMMELA / CLARIN: [id number] /
[2019-03-26 20:57] LABS: Glucose,Whole Blood 213 mg/dL (75-99)
[2019-03-26] MEDS: METOPROLOL TARTRATE 25 MG TAB PO SCH (21:20)
[2019-03-26] MEDS: LISINOPRIL 5 MG TAB PO SCH (21:28)
[2019-03-26] MEDS: ATORVASTATIN 80 MG TAB PO SCH (21:28)
[2019-03-26 22:56] VITALS: RESP 18
--- NOTE | 2019-03-26 23:08 | P.PN ---
Subjective Progress Note Date: 03/26/19 Principal diagnosis: Chest pain Patient is a 68-year-old male with a known history of hypertension, diabetes type 2, history of coronary disease and stent placement 3 came to ER with complaints of chest pain. Patient says that today morning patient developed left sided chest pain and radiated to the side of the chest. Denied any radiation to the left arm. Pain he is assisted with minimal shortness of breath. Denied any nausea vomiting or diaphoresis. Patient did have headache all day. Pain has been constant since then with improved severe 80 currently. Patient is still having dull left-sided chest pain. Patient's suggested him go to ER for further evaluation due to prior history of coronary artery disease. Denied any orthopnea or PND. Denied any recent illnesses. No leg swelling. No nausea vomiting diarrhea or abdominal pain. Chest x-ray showed chronic changes without any acute process EKG showed normal sinus rhythm. Troponin 2 negative 03/25/2019 Patient denied any complaints of chest pain or pressure today. Serial EKG and troponin 3 negative. Cardiology is planning for catheterization tomorrow. Patient does have a history of coronary artery disease and stent placement 3. No nausea vomiting. No headache or dizziness or lightheadedness. 03/26/2019 Patient says that he still having chest discomfort left retrosternal. Scheduled for cardiac catheter patient today afternoon. Otherwise no complaint of shortness of breath. No arrhythmias noted. No headache or dizziness or lightheadedness. No cough or sputum production. Current medications reviewed. Objective - Vital Signs Vital signs: Vital Signs Temp 98.0 F 03/26/19 16:30 Pulse 62 03/26/19 16:30 Resp 16 03/26/19 16:30 BP 141/79 03/26/19 19:03 Pulse Ox 95 03/26/19 16:30 Intake & Output 03/26/19 03/26/19 03/27/19 06:59 18:59 06:59 Intake Total 20 350 Balance 20 350 Intake: IV 100 Intake, IV Titration 250 Amount Heparin Sod,Pork in 0.45% 250 NaCl 25,000 unit In 0.45 % NaCl 1 250ml.bag @ 9. 842 UNITS/KG/HR 10 mls/hr IV .Q24H MANUEL Rx#: [id number] Oral 20 Other: Voiding Method Toilet Toilet # Voids 1 - Exam PHYSICAL EXAMINATION: Patient is lying in the bed comfortably, no acute distress, awake alert and oriented.. HEENT: Normocephalic. Neck is supple. Pupils reactive. Nostrils clear. Oral cavity is moist. Ears reveal no drainage. Neck reveals no JVD, carotid bruits, or thyromegaly. CHEST EXAMINATION: Trachea is central. Symmetrical expansion. Lung singh clear to auscultation and percussion. CARDIAC: Normal S1, S2 with no gallops. No murmurs ABDOMEN: Soft. Bowel sounds normal. No organomegaly. No abdominal bruits. Extremities: reveal no edema. No clubbing or cyanosis Neurologically awake, alert, oriented x3 with well-coordinated movements. No focal deficits noted Skin: No rash or skin lesions. Psychiatric: Coperative. Nonsuicidal Musculoskeletal: No joint swelling or deformity. Normal range of motion. - Labs CBC & Chem 7: 03/24/19 10:30 03/24/19 10:30 Labs: Abnormal Lab Results - Last 24 Hours (Table) 03/26/19 03/26/19 03/26/19 Range/Units 06:23 06:51 11:53 APTT 43.1 H (22.0-30.0) sec POC Glucose (mg/dL) 181 H 150 H (75-99) mg/dL 03/26/19 03/26/19 Range/Units 17:02 20:43 APTT (22.0-30.0) sec POC Glucose (mg/dL) 136 H 213 H (75-99) mg/dL Assessment and Plan Assessment: Atypical chest pain. Possible unstable angina. Ruled out ACS. Cardiac ca theterization today afternoon. Coronary artery disease with history of stent placement 3 Diabetes type 2 Hypertension Previous history of smoking Osteoarthritis History of nephrolithiasis Plan: Patient be continued on telemetry monitoring. Serial EKG and troponin 3. Patient was started on heparin drip. Continue with aspirin statins and beta blockers. Continue with home blood pressure medications and insulin sliding scale. Cardiology is planning for cardiac cath today.. Further recommendations based on the clinical course. Time with Patient: Greater than 30
[2019-03-27 06:37] LABS: Glucose,Whole Blood 172 mg/dL (75-99)
[2019-03-27] MEDS: NITROGLYCERIN OINT 1 INCH/GM PACKET TOPICAL SCH ×2 (07:59→13:28)
[2019-03-27] MEDS: CLOPIDOGREL 75 MG TAB PO SCH (08:00)
[2019-03-27] MEDS: METOPROLOL TARTRATE 50 MG TAB PO SCH (08:00)
[2019-03-27] MEDS: INSULIN ASPART (NovoLOG) 100 UNIT/ML VIAL SQ SCH ×2 (08:00→13:28)
[2019-03-27] MEDS: ASPIRIN 325 MG TAB PO SCH (08:00)
[2019-03-27 08:34] VITALS: BP 167/72; PULSE 67; TEMP 97.7
[2019-03-27 11:53] LABS: Glucose,Whole Blood 148 mg/dL (75-99)
--- NOTE | 2019-03-27 12:10 | P.PN ---
Subjective Patient is seen and examined sitting up in bed in no acute distress. He denies any symptoms of chest discomfort, shortness of breath, dizziness or palpitations. Right radial access site is examined. He has no evidence of pain, numbness or tingling to the right hand or arm. He underwent cardiac catheterization yesterday revealing patent stents with no evidence of progression of disease. Blood pressure 167/72 heart rate 67 afebrile maintaini ng oxygen saturation on room air. Currently maintained on aspirin 325 mg daily, atorvastatin 80 mg daily, Plavix 75 mg daily, lisinopril 5 mg daily and Lopressor 25 mg at bedtime and 50 mg in the morning. GENERAL: Well-appearing, well-nourished and in no acute distress. NECK: Supple without JVD or thyromegaly. LUNGS: Breath sounds clear to auscultation bilaterally. Respiration equal and unlabored. No wheezes, rales or rhonchi. HEART: Regular rate and rhythm without murmurs, rubs or gallops. S1 and S2 heard. EXTREMITIES: Normal range of motion, no edema. No clubbing or cyanosis. Peripheral pulses intact. Right radial access site soft, dry with no evidence of pain, hematoma or ecchymosis. ASSESSMENT Precordial chest pain suggestive of unstable angina. Cardiac catheterization revealed no evidence of progression of coronary artery disease or in-stent restenosis. History of coronary artery disease status post stent placement in the setting of a myocardial infarction Hypertension Dyslipidemia Diabetes mellitus TIA Obesity, BMI 34 PLAN Stable for discharge from a cardiac perspective. Follow-up appointment in the office with Dr. Iniguez has been made. Nurse Practitioner note has been reviewed, I agree with a documented findings and plan of care. Patient was seen and examined. Objective - Vital Signs Vital signs: Vital Signs Temp 97.7 F 03/27/19 08:00 Pulse 67 03/27/19 08:00 Resp 18 03/27/19 08:00 BP 167/72 03/27/19 08:00 Pulse Ox 97 03/27/19 08:00 Intake & Output 03/26/19 03/27/19 03/27/19 18:59 06:59 18:59 Intake Total 350 200 Balance 350 200 Intake: IV 100 Intake, IV Titration 250 Amount Heparin Sod,Pork in 0.45% 250 NaCl 25,000 unit In 0.45 % NaCl 1 250ml.bag @ 9. 842 UNITS/KG/HR 10 mls/hr IV .Q24H [facility] Rx#: [id number] Oral 200 Blood Product 0 Other: Voiding Method Toilet Toilet Toilet # Voids 1 1 - Labs CBC & Chem 7: 03/24/19 10:30 03/24/19 10:30 Labs: Abnormal Lab Results - Last 24 Hours (Table) 03/26/19 03/26/19 03/27/19 Range/Units 17:02 20:43 06:35 POC Glucose (mg/dL) 136 H 213 H 172 H (75-99) mg/dL 03/27/19 Range/Units 11:52 POC Glucose (mg/dL) 148 H (75-99) mg/dL
[2019-03-27] MEDS: NON-FORMULARY DRUG (Empagliflozin [Jardiance] 10 MG) PO SCH (13:28)
[2019-03-27] MEDS: MAG HYDROX/AL HYDROX/SIMETH 30 ML CUP PO SCH (13:28)
== END 2019-03-27 13:40 | disposition home or self-care (01) | DRG 287 ==
LOC: EC 10:00 → 1SOBS 12:00 → OBSVTOIN 03-25 14:13
PROVIDERS: ADMIT Internal Medicine; ATTEND Internal Medicine
PROC: B2111ZZ Fluoroscopy of Multiple Coronary Arteries using Low Osmolar Contrast (ICD-10-PCS; principal; 2019-03-26 15:21)
PROC: 4A023N7 Measurement of Cardiac Sampling and Pressure, Left Heart, Percutaneous Approach (ICD-10-PCS; principal; 2019-03-26 15:21)
DX: I25.110 Atherosclerotic heart disease of native coronary artery with unstable angina pectoris (principal); E11.9 Type 2 diabetes mellitus without complications; E66.9 Obesity, unspecified; E78.00 Pure hypercholesterolemia, unspecified; E78.5 Hyperlipidemia, unspecified; I10 Essential (primary) hypertension; M19.90 Unspecified osteoarthritis, unspecified site; I25.2 Old myocardial infarction; Z68.34 Body mass index [BMI] 34.0-34.9, adult; Z79.82 Long term (current) use of aspirin; Z79.84 Long term (current) use of oral hypoglycemic drugs; Z79.899 Other long term (current) drug therapy; Z79.02 Long term (current) use of antithrombotics/antiplatelets; Z86.73 Personal history of transient ischemic attack (TIA), and cerebral infarction without residual deficits; Z87.891 Personal history of nicotine dependence; Z87.442 Personal history of urinary calculi; Z94.7 Corneal transplant status; Z95.5 Presence of coronary angioplasty implant and graft; Z98.1 Arthrodesis status
CPT/HCPCS: 36415; 71046; 80053; 80061; 83735; 83880; 84484; 85025; 85610; 85730; 93005; 93458; 96365; 96366; 96376; 99291

== ENCOUNTER → 2021-11-11 | Outpatient (CLI) | payer MEDICARE ==
--- NOTE | 2021-11-11 13:46 | XR ---
EXAMINATION TYPE: XR shoulder complete LT DATE OF EXAM: 11/11/2021 COMPARISON: NONE HISTORY: Pain TECHNIQUE: Three views are submitted. FINDINGS: The osseous structures are intact. There is no acute fracture or dislocation. AC joint hypertrophic arthropathy. There is calcification along the humeral head can be associated with calcific tendinosis .. IMPRESSION: 1. AC joint arthropathy correlate for impingement. No definite acute fracture. Concern for rotator cu ff disease correlate with MRI. 2. Correlate for calcific tendinosis.
== END | disposition home or self-care (01) ==
LOC: RADXRYALE 13:11
PROVIDERS: ATTEND Internal Medicine
DX: M12.812 Other specific arthropathies, not elsewhere classified, left shoulder (principal)